=== PATIENT | female | born 1965 | race African-American/Black ===

== ENCOUNTER 2023-04-23 15:38 | Inpatient (IN) | payer OTHER ==
[~2023-04-23] VITALS: Ht 167.6 cm; Wt 97.5 kg
[2023-04-23 16:26] LABS: BASOPHILS % (AUTO) 0.4 % (0.0-2.0); EOSINOPHILS % (AUTO) 1.3 % (0.0-6.0); HEMATOCRIT 27 % (33-45); HEMOGLOBIN 7.9 g/dL (11.5-14.8); LYMPHOCYTES # (AUTO) 0.6 K/uL (0.8-4.8); MEAN CORPUSCULAR HEMOGLOBIN 31 PG (26.0-33.0); MEAN CORPUSCULAR HGB CONC 30 g/dl (31.0-36.0); MEAN CORPUSCULAR VOLUME 104 fL (82-100); MONOCYTES # (AUTO) 0.2 K/uL (0.1-1.30); MONOCYTES % (AUTO) 10.2 % (2.0-12.0); NEUTROPHILS # (AUTO) 1.1 K/uL (1.8-8.9); NEUTROPHILS % (AUTO) 56.1 % (43.0-81.0); RED BLOOD CELL COUNT(AUTO) 2.55 MIL/uL (4.0-5.2); RED CELL DISTRIBUTION WIDTH 24.5 % (11.5-15.0)
[2023-04-23 16:28] LABS: PLATELET COUNT (AUTO) 23 K/uL (150-450); WHITE BLOOD COUNT (AUTO) 1.9 K/uL (4.3-11.0)
[2023-04-23 16:37] LABS: CALCIUM, SERUM 9.3 mg/dL (8.5-10.1); CARBON DIOXIDE 26 mmol/L (21-32); CHLORIDE 110 mmol/L (98-107); CREATININE 1.9 mg/dL (0.6-1.3); GLUCOSE 70 mg/dL (74-106); POTASSIUM 3.9 mmol/L (3.5-5.1); SODIUM SERUM 142 mmol/L (136-145); UREA NITROGEN, BLOOD 17 mg/dL (7-18)
[2023-04-23 16:41] LABS: ALANINE AMINOTRANSFERASE 43 U/L (12-78); ALBUMIN 2.5 g/dL (3.4-5.0); ALKALINE PHOSPHATASE 288 U/L (46-116); ASPARTATE AMINOTRANSFERASE 41 U/L (15-37); BILIRUBIN,DIRECT 0.1 mg/dL (0.0-0.2); BILIRUBIN,TOTAL 0.5 mg/dL (0.2-1.0); TOTAL PROTEIN, SERUM 5.4 g/dL (6.4-8.2)
[2023-04-23 17:24] LABS: INR 1.05 (0.91-1.10); PARTIAL THROMBOPLASTIN TIME 41.9 SEC (24.3-34.3); PROTHROMBIN TIME 11.1 SECS (9.2-11.1)
[2023-04-23] MEDS ORDERED: CEFEPIME 1 GM in IV D5W 50 ML IV ONE (18:00)
[2023-04-23] MEDS ORDERED: IV NS 0.9% 1,000 ML BAG IV ONE (18:00)
[2023-04-23] MEDS ORDERED: VANCOMYCIN 1 GM in IV D5W 250 ML IV ONE (18:00)
[2023-04-23] MEDS ORDERED: METH-647 GT (18:02)
[2023-04-23] MEDS ORDERED: BLOO-668 IN (18:02)
[2023-04-23] MEDS ORDERED: CIPR500T5 PO (18:02)
[2023-04-23] MEDS ORDERED: GUAI100S9 PO (18:02)
[2023-04-23] MEDS ORDERED: PANT40TA2 PO (18:02)
[2023-04-23] MEDS ORDERED: DIPH25TA25 PO (18:02)
[2023-04-23] MEDS ORDERED: SENN-261 PO (18:02)
[2023-04-23] MEDS ORDERED: HYDR20TA23 GT ×2 (18:02)
[2023-04-23] MEDS ORDERED: MELA3TAB41 PO (18:02)
[2023-04-23] MEDS ORDERED: CLON0.2T GT (18:02)
[2023-04-23] MEDS ORDERED: FAMO-131 PO (18:02)
[2023-04-23] MEDS ORDERED: MAG30ORA GT (18:02)
[2023-04-23] MEDS ORDERED: BENZ1LOZ77 PO (18:02)
[2023-04-23] MEDS ORDERED: ONDA4TAB5 GT (18:02)
[2023-04-23] MEDS ORDERED: SEVE800T8 PO (18:02)
[2023-04-23] MEDS ORDERED: CALCIUM ALGINATE TD (18:02)
[2023-04-23] MEDS ORDERED: ALBU8.5H8 IH (18:02)
[2023-04-23] MEDS ORDERED: IPRA12.9 IH (18:02)
[2023-04-23] MEDS ORDERED: FOLI0.8T2 PO (18:02)
[2023-04-23] MEDS ORDERED: TRAZ-182 GT (18:02)
[2023-04-23] MEDS ORDERED: MIDO10TA PO (18:02)
[2023-04-23] MEDS ORDERED: ZINC56.713 TP (18:02)
[2023-04-23] MEDS ORDERED: BISA10SU11 RC (18:02)
[2023-04-23] MEDS ORDERED: HYDR-4303 PO (18:02)
[2023-04-23] MEDS ORDERED: ACET160L44 GT ×2 (18:02)
[2023-04-23] MEDS ORDERED: LORA-258 GT (18:02)
[2023-04-23] MEDS ORDERED: POLY17PO4 GT (18:02)
[2023-04-23] MEDS ORDERED: MIDO10TA GT (18:02)
[2023-04-23] MEDS ORDERED: FERR325T23 PO (18:02)
[2023-04-23] MEDS ORDERED: DULO60CA45 GT (18:02)
[2023-04-23] MEDS ORDERED: MAG HYDROX/AL HYDROX/SIMETH 30 ML UDC PO PRN (18:30)
[2023-04-23] MEDS ORDERED: METHOCARBAMOL (500MG) 500 MG TABLET PO PRN (18:30)
[2023-04-23] MEDS ORDERED: hydrALAZINE HCL IV 20 MG VIAL IV PRN (18:30)
[2023-04-23] MEDS ORDERED: MAGNESIUM HYDROXIDE 30 ML UDC PO PRN (18:30)
[2023-04-23] MEDS ORDERED: ACETAMINOPHEN 325 MG TABLET PO PRN (18:30)
[2023-04-23] MEDS ORDERED: ALBUTEROL FS 2.5 MG/0.5 ML VIAL.NEB NEB PRN (18:30)
[2023-04-23] MEDS ORDERED: ONDANSETRON HCL/PF 4 MG/2 ML VIAL IVP PRN (18:30)
[2023-04-23] MEDS ORDERED: Z GUARD REMEDY 4 OZ OINT TP PRN (18:30)
[2023-04-23] MEDS ORDERED: LORAZEPAM 0.5 MG TABLET PO PRN (18:30)
[2023-04-23] MEDS: ALBUTEROL FS 2.5 MG/0.5 ML VIAL.NEB NEB SCH (19:30)
[2023-04-23] MEDS: IPRATROPIUM NEB FS 0.5 MG/2.5 ML AMPUL.NEB NEB SCH (19:30)
[2023-04-23 19:39] LABS: ANISOCYTOSIS 1+; EOSINOPHILS % (MANUAL) 1 % (0-4); LYMPHOCYTES % (MANUAL) 28 % (16-48); MONOCYTES % (MANUAL) 10 % (0-11.0); NEUTROPHILS % (MANUAL) 61 (42-76); PLATELET ESTIMATE DECREASED
[2023-04-23] MEDS ORDERED: MIDODRINE HCL (5MG) 5 MG TABLET PO PRN (20:00)
[2023-04-23] MEDS ORDERED: VANCOMYCIN 1.5 GM in IV D5W 500ml IV ONE (21:00)
[2023-04-23] MEDS: TRAZODONE 50 MG TABLET PO SCH (22:00)
[2023-04-24] MEDS: ALBUTEROL FS 2.5 MG/0.5 ML VIAL.NEB NEB SCH ×4 (01:30→19:38)
[2023-04-24] MEDS: IPRATROPIUM NEB FS 0.5 MG/2.5 ML AMPUL.NEB NEB SCH ×4 (01:30→19:38)
[2023-04-24] MEDS ORDERED: CEFEPIME 1 GM in IV D5W 50 ML IV SCH ×2 (06:00→11:00)
[2023-04-24] MEDS: HYDROCORTISONE 20 MG TABLET PO SCH ×2 (06:00→18:00)
[2023-04-24 06:29] LABS: BASOPHILS % (AUTO) 0.6 % (0.0-2.0); EOSINOPHILS % (AUTO) 0.9 % (0.0-6.0); HEMATOCRIT 24 % (33-45); HEMOGLOBIN 7.4 g/dL (11.5-14.8); LYMPHOCYTES # (AUTO) 0.7 K/uL (0.8-4.8); LYMPHOCYTES % (AUTO) 31.2 % (20.0-44.0); MEAN CORPUSCULAR HEMOGLOBIN 30 PG (26.0-33.0); MEAN CORPUSCULAR HGB CONC 31 g/dl (31.0-36.0); MEAN CORPUSCULAR VOLUME 98 fL (82-100); MONOCYTES # (AUTO) 0.2 K/uL (0.1-1.30); MONOCYTES % (AUTO) 7.6 % (2.0-12.0); NEUTROPHILS # (AUTO) 1.3 K/uL (1.8-8.9); NEUTROPHILS % (AUTO) 59.7 % (43.0-81.0); RED BLOOD CELL COUNT(AUTO) 2.45 MIL/uL (4.0-5.2); RED CELL DISTRIBUTION WIDTH 23.9 % (11.5-15.0); WHITE BLOOD COUNT (AUTO) 2.1 K/uL (4.3-11.0)
[2023-04-24 06:52] LABS: ALBUMIN 2.4 g/dL (3.4-5.0); BILIRUBIN,TOTAL 0.7 mg/dL (0.2-1.0); CALCIUM, SERUM 9.5 mg/dL (8.5-10.1); CREATININE 1.9 mg/dL (0.6-1.3); PHOSPHORUS 1.2 mg/dL (2.5-4.9); POTASSIUM 4.1 mmol/L (3.5-5.1); TOTAL PROTEIN, SERUM 5.1 g/dL (6.4-8.2)
[2023-04-24] MEDS: FERROUS SULFATE (325 MG) 325 MG/TAB TABLET PO SCH (07:00)
[2023-04-24] MEDS ORDERED: IPRATROPIUM NEB FS 0.5 MG/2.5 ML AMPUL.NEB ONE (07:30)
[2023-04-24] MEDS ORDERED: ALBUTEROL FS 2.5 MG/0.5 ML VIAL.NEB ONE (07:30)
[2023-04-24] MEDS: PANTOPRAZOLE 40 MG TABLET.DR PO SCH (07:30)
[2023-04-24] MEDS: SEVELAMER CARBONATE 800 MG POWD.PACK PO SCH ×3 (08:00→18:00)
[2023-04-24] MEDS: DULOXETINE HCL 30 MG CAPSULE.DR PO SCH (09:00)
[2023-04-24] MEDS: POLYETHYLENE GLYCOL 3350 17 GM POWD.PACK PO SCH (09:00)
[2023-04-24] MEDS ORDERED: VANCOMYCIN 500 MG in IV D5W 100 ML IV PRN (09:00)
[2023-04-24] MEDS: DOCUSATE SODIUM LIQ 100 MG/10 ML UDC PO SCH ×2 (09:00→17:00)
[2023-04-24 09:20] LABS: PLATELET COUNT (AUTO) 22 K/uL (150-450)
[2023-04-24] MEDS ORDERED: KEY,NONCONTROL,TO KEEP IN PYXI 1 EA MC ONE (10:19)
[2023-04-24] MEDS ORDERED: VANCOMYCIN 1.5 GM in IV D5W 500ml IV ONE (15:00)
[2023-04-24 16:21] LABS: D-DIMER 0.36 mg/L(FEU (0.17-0.50); INR 1.06 (0.91-1.10); PROTHROMBIN TIME 11.2 SECS (9.2-11.1)
[2023-04-24 16:56] LABS: C-REACTIVE PROTEIN 13.6 mg/dL (0.0-0.30)
[2023-04-24 16:59] LABS: RHEUMATOID FACTOR SCREEN NEGATIVE (NEGATIVE)
[2023-04-24] MEDS ORDERED: Sodium Phosphate 15 MMOL in IV NS 0.9% 245 ML IV ONE (18:00)
[2023-04-24 19:59] VITALS: BP 115/77; TEMP 97.1; O2SAT 100
[2023-04-24 20:00] VITALS: BP 151/87; TEMP 98.4; O2SAT 100
[2023-04-24] MEDS: MORPHINE SULFATE INJ 2 MG/ML DISP.SYRIN IV PRN (20:42)
[2023-04-24] MEDS: CEFEPIME 1 GM in IV D5W 50 ML IV SCH (20:49)
[2023-04-24] MEDS: TRAZODONE 50 MG TABLET PO SCH (21:15)
[2023-04-25] VITALS: BP 148/81; TEMP 98.2; O2SAT 99
[2023-04-25] MEDS: IPRATROPIUM NEB FS 0.5 MG/2.5 ML AMPUL.NEB NEB SCH ×4 (01:36→19:36)
[2023-04-25] MEDS: ALBUTEROL FS 2.5 MG/0.5 ML VIAL.NEB NEB SCH ×4 (01:36→19:36)
[2023-04-25 02:34] LABS: BAND % (MANUAL) 3 % (0.0-5.0); BASOPHILS % (MANUAL) 0 % (0.0-2.0); EOSINOPHILS % (MANUAL) 0 % (0-4); LYMPHOCYTES % (MANUAL) 27 % (16-48); MONOCYTES % (MANUAL) 6 % (0-11.0); NEUTROPHILS % (MANUAL) 64 (42-76); PLATELET ESTIMATE DECREASED
[2023-04-25 02:35] LABS: ANISOCYTOSIS 1+; HYPOCHROMASIA 1+; OVALOCYTES 1+
[2023-04-25 04:00] VITALS: BP 137/75; TEMP 97.8; O2SAT 100
[2023-04-25] MEDS: CEFEPIME 1 GM in IV D5W 50 ML IV SCH ×2 (05:42→16:01)
[2023-04-25] MEDS: FERROUS SULFATE (325 MG) 325 MG/TAB TABLET PO SCH (05:43)
[2023-04-25] MEDS: HYDROCORTISONE 20 MG TABLET PO SCH ×2 (05:43→17:02)
[2023-04-25 05:51] LABS: BASOPHILS % (AUTO) 0.6 % (0.0-2.0); HEMATOCRIT 24 % (33-45); HEMOGLOBIN 7.4 g/dL (11.5-14.8); LYMPHOCYTES # (AUTO) 0.8 K/uL (0.8-4.8); LYMPHOCYTES % (AUTO) 30.4 % (20.0-44.0); MEAN CORPUSCULAR HEMOGLOBIN 31 PG (26.0-33.0); MEAN CORPUSCULAR HGB CONC 31 g/dl (31.0-36.0); MEAN CORPUSCULAR VOLUME 100 fL (82-100); MONOCYTES # (AUTO) 0.2 K/uL (0.1-1.30); MONOCYTES % (AUTO) 8.2 % (2.0-12.0); NEUTROPHILS # (AUTO) 1.6 K/uL (1.8-8.9); NEUTROPHILS % (AUTO) 59.8 % (43.0-81.0); RED BLOOD CELL COUNT(AUTO) 2.42 MIL/uL (4.0-5.2); RED CELL DISTRIBUTION WIDTH 24.5 % (11.5-15.0); WHITE BLOOD COUNT (AUTO) 2.7 K/uL (4.3-11.0)
[2023-04-25 06:08] LABS: PLATELET COUNT (AUTO) 20 K/uL (150-450)
[2023-04-25 06:11] LABS: CALCIUM, SERUM 9.7 mg/dL (8.5-10.1); CREATININE 2.5 mg/dL (0.6-1.3); POTASSIUM 4.6 mmol/L (3.5-5.1)
[2023-04-25 06:12] LABS: OCCULT BLOOD STOOL POSITIVE (NEGATIVE)
[2023-04-25 06:24] LABS: D-DIMER 0.37 mg/L(FEU (0.17-0.50); INR 1.11 (0.91-1.10); PARTIAL THROMBOPLASTIN TIME 44.1 SEC (24.3-34.3); PROTHROMBIN TIME 11.7 SECS (9.2-11.1)
[2023-04-25 08:00] VITALS: BP 150/100; TEMP 96; O2SAT 100
[2023-04-25 08:10] LABS: IMMUNOGLOBULIN A, SERUM 181 mg/dL (87-352); IMMUNOGLOBULIN G, SERUM 524 mg/dL (586-1602); IMMUNOGLOBULIN M, SERUM 92 mg/dL (26-217)
[2023-04-25] MEDS: DULOXETINE HCL 30 MG CAPSULE.DR PO SCH (08:55)
[2023-04-25] MEDS: DOCUSATE SODIUM LIQ 100 MG/10 ML UDC PO SCH ×2 (08:55→17:02)
[2023-04-25] MEDS: PANTOPRAZOLE 40 MG TABLET.DR PO SCH (08:55)
[2023-04-25] MEDS: SEVELAMER CARBONATE 800 MG POWD.PACK PO SCH (08:55)
[2023-04-25] MEDS: POLYETHYLENE GLYCOL 3350 17 GM POWD.PACK PO SCH (08:55)
[2023-04-25 09:07] LABS: FOLIC ACID 9.8 ng/mL (>3.0)
[2023-04-25 10:58] LABS: ANISOCYTOSIS 1+; BAND % (MANUAL) 8 % (0.0-5.0); BASOPHILS % (MANUAL) 0 % (0.0-2.0); EOSINOPHILS % (MANUAL) 0 % (0-4); HYPOCHROMASIA 1+; LYMPHOCYTES % (MANUAL) 24 % (16-48); MONOCYTES % (MANUAL) 7 % (0-11.0); NEUTROPHILS % (MANUAL) 61 (42-76); OVALOCYTES 1+; PLATELET ESTIMATE DECREASED
[2023-04-25 11:08] LABS: *ANA ANTI-CENTROMERE B AB <0.2 AI (0.0-0.9); *ANA ANTI-DNA(DS) AB, QN <1 IU/mL (0-9); *ANA ANTI-JO-1 <0.2 AI (0.0-0.9); *ANA ANTICHROMATIN ANTIBODY <0.2 AI (0.0-0.9); *ANA RNP ANTIBODIES <0.2 AI (0.0-0.9); *ANA SJOGREN'S ANTI-SS-A <0.2 AI (0.0-0.9); *ANA SJOGREN'S ANTI-SS-B <0.2 AI (0.0-0.9); *ANAANTI-SCLERODERMA-70 AB <0.2 AI (0.0-0.9); *ANASMITH AB <0.2 AI (0.0-0.9)
[2023-04-25 12:00] VITALS: BP 102/56; TEMP 96.8; O2SAT 100
[2023-04-25 12:12] LABS: *SPE A/G RATIO 1.5 (0.7-1.7); *SPE ALBUMIN 2.9 g/dL (2.9-4.4); *SPE ALPHA-1-GLOBULIN 0.3 g/dL (0.0-0.4); *SPE ALPHA-2-GLOBULIN 0.4 g/dL (0.4-1.0); *SPE BETA GLOBULIN 0.6 g/dL (0.7-1.3); *SPE GLOBULIN, TOTAL 1.9 g/dL (2.2-3.9); *SPE M-SPIKE Not Observed g/dL (Not Observed); *SPE PROTEIN TOTAL 4.8 g/dL (6.0-8.5); *SPEGAMMA GLOBULIN 0.5 g/dL (0.4-1.8); FREE KAPPA LT CHAINS SERUM 121.3 mg/L (3.3-19.4); FREE LAMBDA LT CHAIN SERUM 77.5 mg/L (5.7-26.3); HEPATITIS B SURFACE AB Reactive (.); KAPPA/LAMBDA RATIO SERUM 1.57 (0.26-1.65)
[2023-04-25] MEDS: SEVELAMER CARBONATE 800 MG TABLET PO SCH ×2 (12:49→17:02)
[2023-04-25 16:00] VITALS: BP 97/58; TEMP 97.2; O2SAT 100
[2023-04-25] MEDS: IV D5/ 0.9% NACL 1,000 ML IV PRN (19:37)
[2023-04-25 20:00] VITALS: BP 142/68; TEMP 97.6; O2SAT 100
[2023-04-25] MEDS: TRAZODONE 50 MG TABLET PO SCH (23:38)
[2023-04-26] VITALS (19 sets, daily range): BP systolic 80–148; BP diastolic 50–78; TEMP 95.9–98.2; O2SAT 100
[2023-04-26] MEDS: ALBUTEROL FS 2.5 MG/0.5 ML VIAL.NEB NEB SCH ×4 (01:32→20:08)
[2023-04-26] MEDS: IPRATROPIUM NEB FS 0.5 MG/2.5 ML AMPUL.NEB NEB SCH ×4 (01:32→20:08)
[2023-04-26] MEDS: MORPHINE SULFATE INJ 2 MG/ML DISP.SYRIN IV PRN ×2 (02:47→21:57)
[2023-04-26] MEDS: CEFEPIME 1 GM in IV D5W 50 ML IV SCH ×2 (06:08→17:32)
[2023-04-26] MEDS: HYDROCORTISONE 20 MG TABLET PO SCH ×2 (06:08→17:39)
[2023-04-26] MEDS: FERROUS SULFATE (325 MG) 325 MG/TAB TABLET PO SCH (06:09)
[2023-04-26] MEDS: IV D5/ 0.9% NACL 1,000 ML IV PRN ×2 (07:03→23:48)
[2023-04-26 07:14] LABS: CALCIUM, SERUM 9.1 mg/dL (8.5-10.1); CREATININE 1.9 mg/dL (0.6-1.3); POTASSIUM 4.1 mmol/L (3.5-5.1)
[2023-04-26] MEDS: SEVELAMER CARBONATE 800 MG TABLET PO SCH ×3 (08:16→17:39)
[2023-04-26] MEDS: DULOXETINE HCL 30 MG CAPSULE.DR PO SCH (08:16)
[2023-04-26] MEDS: DOCUSATE SODIUM LIQ 100 MG/10 ML UDC PO SCH ×2 (08:16→16:50)
[2023-04-26] MEDS: PANTOPRAZOLE 40 MG TABLET.DR PO SCH (08:16)
[2023-04-26] MEDS: POLYETHYLENE GLYCOL 3350 17 GM POWD.PACK PO SCH (08:17)
[2023-04-26 08:26] LABS: APPEARANCE,URINE TURBID (CLEAR); BLOOD, URINE 2+ Ery/uL (NEGATIVE); COLOR,URINE YELLOW (YELLOW); PH,URINE 7.5 (5.0-8.0); PROTEIN,URINE 3+ mg/dl (NEGATIVE); UGLUCOSE NEGATIVE (NEGATIVE)
[2023-04-26 08:27] LABS: ADD URINE CULTURE YES; BACTERIA,URINE Many /HPF (None Seen); BILIRUBIN,URINE NEGATIVE (NEGATIVE); KETONES,URINE NEGATIVE (NEGATIVE); LEUKOCYTE ESTERASE ,URINE 3+ (NEGATIVE); NITRITE, URINE NEGATIVE (NEGATIVE); SQUAMOUS EPITHELIAL CELL,UR Few /HPF (None Seen); UROBILINOGEN,URINE 0.2 EU/dL (0.2); WBC,URINE 51-80 /HPF (0-3)
[2023-04-26 09:04] LABS: BASOPHILS % (AUTO) 1.2 % (0.0-2.0); EOSINOPHILS % (AUTO) 0.4 % (0.0-6.0); HEMATOCRIT 23 % (33-45); HEMOGLOBIN 7.1 g/dL (11.5-14.8); LYMPHOCYTES # (AUTO) 0.6 K/uL (0.8-4.8); LYMPHOCYTES % (AUTO) 14.5 % (20.0-44.0); MEAN CORPUSCULAR HEMOGLOBIN 31 PG (26.0-33.0); MEAN CORPUSCULAR HGB CONC 32 g/dl (31.0-36.0); MEAN CORPUSCULAR VOLUME 98 fL (82-100); MONOCYTES # (AUTO) 0.2 K/uL (0.1-1.30); NEUTROPHILS # (AUTO) 3.2 K/uL (1.8-8.9); NEUTROPHILS % (AUTO) 79.9 % (43.0-81.0); RED BLOOD CELL COUNT(AUTO) 2.31 MIL/uL (4.0-5.2); RED CELL DISTRIBUTION WIDTH 24.5 % (11.5-15.0)
[2023-04-26 09:07] LABS: PLATELET COUNT (AUTO) 18 K/uL (150-450)
[2023-04-26 09:17] LABS: ALBUMIN 2.2 g/dL (3.4-5.0); BILIRUBIN,TOTAL 0.7 mg/dL (0.2-1.0); CREATININE 1.9 mg/dL (0.6-1.3); POTASSIUM 4.2 mmol/L (3.5-5.1); TOTAL PROTEIN, SERUM 5.1 g/dL (6.4-8.2)
[2023-04-26] MEDS ORDERED: MINERAL OIL/PETROLATUM,WHITE 120 GM JAR TP PRN (11:30)
[2023-04-26] MEDS ORDERED: NOREPINEPHRINE 8 MG in IV NS 0.9% 242 ML IV PRN (11:30)
[2023-04-26 11:47] LABS: ANISOCYTOSIS 1+; BAND % (MANUAL) 3 % (0.0-5.0); BASOPHILS % (MANUAL) 0 % (0.0-2.0); EOSINOPHILS % (MANUAL) 2 % (0-4); HYPOCHROMASIA 1+; LYMPHOCYTES % (MANUAL) 11 % (16-48); MONOCYTES % (MANUAL) 9 % (0-11.0); NEUTROPHILS % (MANUAL) 75 (42-76); OVALOCYTES 1+; PLATELET ESTIMATE DECREASED
[2023-04-26] MEDS ORDERED: EPOETIN ALFA (10,000 UNIT) 10,000 UNIT/ML VIAL SQ SCH (15:00)
[2023-04-26 15:07] LABS: HEMOGLOBIN 7.6 g/dL (11.5-14.8)
[2023-04-26] MEDS: NOREPINEPHRINE 8 MG in IV NS 0.9% 242 ML IV PRN (16:37)
[2023-04-26] MEDS: GENTAMICIN 0.1% OINT 15 GM TUBE TP SCH (17:42)
[2023-04-26] MEDS ORDERED: VANCOMYCIN 1 GM /D5W 250 ML PB IV ONE (21:03)
[2023-04-26] MEDS: TRAZODONE 50 MG TABLET PO SCH (21:05)
[2023-04-27] VITALS (84 sets, daily range): BP systolic 62–176; BP diastolic 26–164; TEMP 95.8–98.4; O2SAT 96–100
[2023-04-27] MEDS: IPRATROPIUM NEB FS 0.5 MG/2.5 ML AMPUL.NEB NEB SCH ×4 (02:11→19:34)
[2023-04-27] MEDS: ALBUTEROL FS 2.5 MG/0.5 ML VIAL.NEB NEB SCH ×4 (02:11→19:34)
[2023-04-27] MEDS: HYDROCORTISONE 20 MG TABLET PO SCH ×2 (06:00→17:34)
[2023-04-27] MEDS: SEVELAMER CARBONATE 800 MG TABLET PO SCH ×3 (08:00→17:35)
[2023-04-27] MEDS: GENTAMICIN 0.1% OINT 15 GM TUBE TP SCH (09:00)
[2023-04-27] MEDS: DULOXETINE HCL 30 MG CAPSULE.DR PO SCH (09:00)
[2023-04-27] MEDS: DOCUSATE SODIUM LIQ 100 MG/10 ML UDC PO SCH ×2 (09:00→17:00)
[2023-04-27] MEDS: POLYETHYLENE GLYCOL 3350 17 GM POWD.PACK PO SCH (09:00)
[2023-04-27 09:46] LABS: ALANINE AMINOTRANSFERASE < 6 U/L (12-78); ALBUMIN 2.4 g/dL (3.4-5.0); ALKALINE PHOSPHATASE 312 U/L (46-116); ASPARTATE AMINOTRANSFERASE 22 U/L (15-37); BILIRUBIN,TOTAL 1.3 mg/dL (0.2-1.0); CALCIUM, SERUM 9.5 mg/dL (8.5-10.1); CARBON DIOXIDE 24 mmol/L (21-32); CHLORIDE 105 mmol/L (98-107); CREATININE 2.1 mg/dL (0.6-1.3); GLUCOSE 62 mg/dL (74-106); POTASSIUM 4.3 mmol/L (3.5-5.1); SODIUM SERUM 135 mmol/L (136-145); TOTAL PROTEIN, SERUM 5.6 g/dL (6.4-8.2); UREA NITROGEN, BLOOD 19 mg/dL (7-18)
[2023-04-27] MEDS: PANTOPRAZOLE 40 MG VIAL IV SCH (10:04)
[2023-04-27] MEDS: GENTAMICIN 0.1% CREAM 15 GM TUBE TP SCH ×2 (11:00→17:51)
[2023-04-27 11:20] LABS: BASOPHILS % (AUTO) 0.3 % (0.0-2.0); EOSINOPHILS % (AUTO) 0.4 % (0.0-6.0); HEMATOCRIT 28 % (33-45); HEMOGLOBIN 8.8 g/dL (11.5-14.8); LYMPHOCYTES # (AUTO) 0.9 K/uL (0.8-4.8); LYMPHOCYTES % (AUTO) 8.8 % (20.0-44.0); MEAN CORPUSCULAR HEMOGLOBIN 31 PG (26.0-33.0); MEAN CORPUSCULAR HGB CONC 32 g/dl (31.0-36.0); MEAN CORPUSCULAR VOLUME 98 fL (82-100); MONOCYTES # (AUTO) 0.4 K/uL (0.1-1.30); MONOCYTES % (AUTO) 4.1 % (2.0-12.0); NEUTROPHILS # (AUTO) 8.7 K/uL (1.8-8.9); NEUTROPHILS % (AUTO) 86.4 % (43.0-81.0); RED BLOOD CELL COUNT(AUTO) 2.82 MIL/uL (4.0-5.2); RED CELL DISTRIBUTION WIDTH 24.4 % (11.5-15.0); WHITE BLOOD COUNT (AUTO) 10.1 K/uL (4.3-11.0)
[2023-04-27 11:25] LABS: PLATELET COUNT (AUTO) 33 K/uL (150-450)
[2023-04-27] MEDS ORDERED: LORAZEPAM INJ 2 MG/ML VIAL IV PRN (12:30)
[2023-04-27 16:32] LABS: ANISOCYTOSIS 1+; BAND % (MANUAL) 6 % (0.0-5.0); EOSINOPHILS % (MANUAL) 1 % (0-4); LYMPHOCYTES % (MANUAL) 12 % (16-48); MONOCYTES % (MANUAL) 5 % (0-11.0); NEUTROPHILS % (MANUAL) 76 (42-76); PLATELET ESTIMATE ADEQUATE
[2023-04-27 16:36] LABS: OVALOCYTES 1+
[2023-04-27] MEDS: NOREPINEPHRINE 8 MG in IV NS 0.9% 242 ML IV PRN (17:02)
[2023-04-27] MEDS: CEFEPIME 1 GM in IV D5W 50 ML IV SCH (17:50)
[2023-04-27] MEDS ORDERED: GENTAMICIN 120 MG in IV D5W 100 ML IV ONE (20:00)
[2023-04-27] MEDS: TRAZODONE 50 MG TABLET PO SCH (22:00)
[2023-04-28] VITALS (98 sets, daily range): BP systolic 83–138; BP diastolic 50–126; TEMP 97.6–98.4; O2SAT 98–100
[2023-04-28] MEDS: ALBUTEROL FS 2.5 MG/0.5 ML VIAL.NEB NEB SCH ×4 (01:16→19:14)
[2023-04-28] MEDS: IPRATROPIUM NEB FS 0.5 MG/2.5 ML AMPUL.NEB NEB SCH ×4 (01:16→19:14)
[2023-04-28] MEDS: HYDROCORTISONE 20 MG TABLET PO SCH (06:00)
[2023-04-28] MEDS: SEVELAMER CARBONATE 800 MG TABLET PO SCH ×3 (08:00→17:41)
[2023-04-28] MEDS: POLYETHYLENE GLYCOL 3350 17 GM POWD.PACK PO SCH (09:00)
[2023-04-28] MEDS: DULOXETINE HCL 30 MG CAPSULE.DR PO SCH (09:00)
[2023-04-28] MEDS: DOCUSATE SODIUM LIQ 100 MG/10 ML UDC PO SCH ×2 (09:00→17:00)
[2023-04-28] MEDS: PANTOPRAZOLE 40 MG VIAL IV SCH (09:19)
[2023-04-28] MEDS: GENTAMICIN 0.1% CREAM 15 GM TUBE TP SCH ×2 (09:22→17:41)
[2023-04-28] MEDS: IV NS 0.9% 250 ML IV PRN (13:41)
[2023-04-28] MEDS: NOREPINEPHRINE 8 MG in IV NS 0.9% 242 ML IV PRN (16:46)
[2023-04-28] MEDS: HYDROCORTISONE SOD SUCCINATE 100 MG/2 ML VIAL IV SCH (17:38)
[2023-04-28 20:37] LABS: BASOPHILS % (AUTO) 0.2 % (0.0-2.0); EOSINOPHILS % (AUTO) 0.1 % (0.0-6.0); HEMATOCRIT 27 % (33-45); HEMOGLOBIN 8.3 g/dL (11.5-14.8); LYMPHOCYTES # (AUTO) 0.7 K/uL (0.8-4.8); LYMPHOCYTES % (AUTO) 4.1 % (20.0-44.0); MEAN CORPUSCULAR HEMOGLOBIN 30 PG (26.0-33.0); MEAN CORPUSCULAR HGB CONC 31 g/dl (31.0-36.0); MEAN CORPUSCULAR VOLUME 98 fL (82-100); MONOCYTES # (AUTO) 0.3 K/uL (0.1-1.30); MONOCYTES % (AUTO) 1.8 % (2.0-12.0); NEUTROPHILS % (AUTO) 93.8 % (43.0-81.0); RED BLOOD CELL COUNT(AUTO) 2.76 MIL/uL (4.0-5.2); RED CELL DISTRIBUTION WIDTH 24.5 % (11.5-15.0)
[2023-04-28 20:40] LABS: PLATELET COUNT (AUTO) 21 K/uL (150-450)
[2023-04-28 21:13] LABS: BILIRUBIN,TOTAL 1.5 mg/dL (0.2-1.0); CALCIUM, SERUM 9.2 mg/dL (8.5-10.1); CREATININE 2.1 mg/dL (0.6-1.3); MAGNESIUM 1.7 mg/dL (1.8-2.4); PHOSPHORUS 2.5 mg/dL (2.5-4.9); TOTAL PROTEIN, SERUM 5.1 g/dL (6.4-8.2)
[2023-04-28 21:48] LABS: BAND % (MANUAL) 1 % (0.0-5.0); LYMPHOCYTES % (MANUAL) 6 % (16-48); MONOCYTES % (MANUAL) 2 % (0-11.0); NEUTROPHILS % (MANUAL) 91 (42-76)
[2023-04-28 21:52] LABS: ANISOCYTOSIS 1+; OVALOCYTES 1+; PLATELET ESTIMATE DECREASED
[2023-04-28] MEDS: TRAZODONE 50 MG TABLET PO SCH (22:00)
[2023-04-28] MEDS: IV D5/ 0.9% NACL 1,000 ML IV PRN (22:14)
[2023-04-29] VITALS (95 sets, daily range): BP systolic 68–188; BP diastolic 41–158; TEMP 97.3–98.3; O2SAT 81–100
[2023-04-29] MEDS: ALBUTEROL FS 2.5 MG/0.5 ML VIAL.NEB NEB SCH ×4 (02:13→19:57)
[2023-04-29] MEDS: IPRATROPIUM NEB FS 0.5 MG/2.5 ML AMPUL.NEB NEB SCH ×4 (02:13→19:57)
[2023-04-29] MEDS ORDERED: PHENTOLAMINE MESYLATE IV ONE (04:30)
[2023-04-29] MEDS: HYDROCORTISONE SOD SUCCINATE 100 MG/2 ML VIAL IV SCH ×2 (05:12→18:06)
[2023-04-29] MEDS: SEVELAMER CARBONATE 800 MG TABLET PO SCH ×3 (08:00→18:00)
[2023-04-29] MEDS: DOCUSATE SODIUM LIQ 100 MG/10 ML UDC PO SCH ×2 (08:37→17:00)
[2023-04-29] MEDS: DULOXETINE HCL 30 MG CAPSULE.DR PO SCH (08:37)
[2023-04-29] MEDS: POLYETHYLENE GLYCOL 3350 17 GM POWD.PACK PO SCH (08:37)
[2023-04-29] MEDS: GENTAMICIN 0.1% CREAM 15 GM TUBE TP SCH ×2 (08:38→17:46)
[2023-04-29] MEDS: PANTOPRAZOLE 40 MG VIAL IV SCH (08:41)
[2023-04-29] MEDS: MORPHINE SULFATE INJ 2 MG/ML DISP.SYRIN IV PRN ×2 (11:09→16:06)
[2023-04-29 15:11] LABS: BASOPHILS % (AUTO) 0.1 % (0.0-2.0); HEMATOCRIT 23 % (33-45); HEMOGLOBIN 7.2 g/dL (11.5-14.8); LYMPHOCYTES # (AUTO) 0.8 K/uL (0.8-4.8); LYMPHOCYTES % (AUTO) 6.7 % (20.0-44.0); MEAN CORPUSCULAR HEMOGLOBIN 30 PG (26.0-33.0); MEAN CORPUSCULAR HGB CONC 32 g/dl (31.0-36.0); MEAN CORPUSCULAR VOLUME 96 fL (82-100); MONOCYTES # (AUTO) 0.4 K/uL (0.1-1.30); MONOCYTES % (AUTO) 3.1 % (2.0-12.0); NEUTROPHILS # (AUTO) 10.6 K/uL (1.8-8.9); NEUTROPHILS % (AUTO) 90.1 % (43.0-81.0); RED BLOOD CELL COUNT(AUTO) 2.38 MIL/uL (4.0-5.2); RED CELL DISTRIBUTION WIDTH 24.5 % (11.5-15.0); WHITE BLOOD COUNT (AUTO) 11.8 K/uL (4.3-11.0)
[2023-04-29 15:12] LABS: PLATELET COUNT (AUTO) 25 K/uL (150-450)
[2023-04-29 15:15] LABS: CALCIUM, SERUM 9.3 mg/dL (8.5-10.1); CREATININE 2.4 mg/dL (0.6-1.3); POTASSIUM 4.2 mmol/L (3.5-5.1)
[2023-04-29 15:25] LABS: ALBUMIN 1.9 g/dL (3.4-5.0); BILIRUBIN,TOTAL 1.4 mg/dL (0.2-1.0)
[2023-04-29] MEDS ORDERED: TERBUTALINE SULFATE 1 MG/ML VIAL SQ ONE (15:30)
[2023-04-29 17:36] LABS: D-DIMER 1.29 mg/L(FEU (0.17-0.50); INR 1.41 (0.91-1.10); PARTIAL THROMBOPLASTIN TIME 49.1 SEC (24.3-34.3); PROTHROMBIN TIME 14.6 SECS (9.2-11.1)
[2023-04-29] MEDS: IV D5/ 0.9% NACL 1,000 ML IV PRN (17:41)
[2023-04-29 17:57] LABS: ANISOCYTOSIS 1+; LYMPHOCYTES % (MANUAL) 8 % (16-48); MONOCYTES % (MANUAL) 4 % (0-11.0); NEUTROPHILS % (MANUAL) 88 (42-76); PLATELET ESTIMATE DECREASED
[2023-04-29] MEDS: NOREPINEPHRINE 8 MG in IV NS 0.9% 242 ML IV PRN (21:10)
[2023-04-29] MEDS: TRAZODONE 50 MG TABLET PO SCH (22:00)
[2023-04-30] VITALS (55 sets, daily range): BP systolic 82–128; BP diastolic 55–93; TEMP 97–98.1; O2SAT 99–100
[2023-04-30] MEDS: ALBUTEROL FS 2.5 MG/0.5 ML VIAL.NEB NEB SCH ×4 (01:23→19:44)
[2023-04-30] MEDS: IPRATROPIUM NEB FS 0.5 MG/2.5 ML AMPUL.NEB NEB SCH ×4 (01:23→19:44)
[2023-04-30 04:46] LABS: BASOPHILS % (AUTO) 0.2 % (0.0-2.0); EOSINOPHILS % (AUTO) 0.1 % (0.0-6.0); HEMATOCRIT 21 % (33-45); LYMPHOCYTES # (AUTO) 0.8 K/uL (0.8-4.8); LYMPHOCYTES % (AUTO) 7.2 % (20.0-44.0); MEAN CORPUSCULAR HEMOGLOBIN 31 PG (26.0-33.0); MEAN CORPUSCULAR HGB CONC 32 g/dl (31.0-36.0); MEAN CORPUSCULAR VOLUME 95 fL (82-100); MONOCYTES # (AUTO) 0.6 K/uL (0.1-1.30); MONOCYTES % (AUTO) 5.6 % (2.0-12.0); NEUTROPHILS # (AUTO) 9.3 K/uL (1.8-8.9); NEUTROPHILS % (AUTO) 86.9 % (43.0-81.0); RED BLOOD CELL COUNT(AUTO) 2.22 MIL/uL (4.0-5.2); RED CELL DISTRIBUTION WIDTH 23.8 % (11.5-15.0); WHITE BLOOD COUNT (AUTO) 10.7 K/uL (4.3-11.0)
[2023-04-30 04:51] LABS: CALCIUM, SERUM 9.1 mg/dL (8.5-10.1); CREATININE 2.5 mg/dL (0.6-1.3); POTASSIUM 3.8 mmol/L (3.5-5.1)
[2023-04-30 04:53] LABS: PLATELET COUNT (AUTO) 23 K/uL (150-450)
[2023-04-30 04:54] LABS: HEMOGLOBIN 6.8 g/dL (11.5-14.8)
[2023-04-30 04:57] LABS: ALBUMIN 1.8 g/dL (3.4-5.0); BILIRUBIN,TOTAL 0.9 mg/dL (0.2-1.0); TOTAL PROTEIN, SERUM 4.7 g/dL (6.4-8.2)
[2023-04-30 05:01] LABS: D-DIMER 1.41 mg/L(FEU (0.17-0.50); INR 1.29 (0.91-1.10); PROTHROMBIN TIME 13.4 SECS (9.2-11.1)
[2023-04-30] MEDS: HYDROCORTISONE SOD SUCCINATE 100 MG/2 ML VIAL IV SCH ×2 (06:27→17:36)
[2023-04-30] MEDS: SEVELAMER CARBONATE 800 MG TABLET PO SCH ×3 (07:58→17:35)
[2023-04-30] MEDS: DOCUSATE SODIUM LIQ 100 MG/10 ML UDC PO SCH ×2 (08:03→16:30)
[2023-04-30] MEDS: DULOXETINE HCL 30 MG CAPSULE.DR PO SCH (08:03)
[2023-04-30] MEDS: POLYETHYLENE GLYCOL 3350 17 GM POWD.PACK PO SCH (08:03)
[2023-04-30] MEDS: PANTOPRAZOLE 40 MG VIAL IV SCH (08:03)
[2023-04-30] MEDS: GENTAMICIN 0.1% CREAM 15 GM TUBE TP SCH ×2 (08:04→16:30)
[2023-04-30] MEDS: IV NS 0.9% 250 ML IV PRN (08:26)
[2023-04-30] MEDS: IV D5/ 0.9% NACL 1,000 ML IV PRN (10:21)
[2023-04-30 12:06] LABS: ANISOCYTOSIS 1+; BASOPHILS % (MANUAL) 0 % (0.0-2.0); EOSINOPHILS % (MANUAL) 0 % (0-4); LYMPHOCYTES % (MANUAL) 9 % (16-48); MONOCYTES % (MANUAL) 6 % (0-11.0); NEUTROPHILS % (MANUAL) 85 (42-76); OVALOCYTES 1+; PLATELET ESTIMATE DECREASED; STOMATOCYTES 1+
[2023-04-30] MEDS: EPOETIN ALFA (10,000 UNIT) 10,000 UNIT/ML VIAL SQ SCH (15:04)
[2023-04-30] MEDS: GENTAMICIN 120 MG in IV D5W 100 ML IV PRN (17:36)
[2023-04-30 19:19] LABS: HEMATOCRIT 24 % (33-45); HEMOGLOBIN 7.5 g/dL (11.5-14.8); MEAN CORPUSCULAR HEMOGLOBIN 30 PG (26.0-33.0); MEAN CORPUSCULAR HGB CONC 32 g/dl (31.0-36.0); MEAN CORPUSCULAR VOLUME 92 fL (82-100); RED BLOOD CELL COUNT(AUTO) 2.56 MIL/uL (4.0-5.2); RED CELL DISTRIBUTION WIDTH 24.8 % (11.5-15.0); WHITE BLOOD COUNT (AUTO) 9.7 K/uL (4.3-11.0)
[2023-04-30 19:45] LABS: PLATELET COUNT (AUTO) 19 K/uL (150-450)
[2023-04-30] MEDS: TRAZODONE 50 MG TABLET PO SCH (22:00)
[2023-05-01] VITALS (24 sets, daily range): BP systolic 104–139; BP diastolic 53–79; TEMP 96.9–97.9; O2SAT 98–100
[2023-05-01] MEDS: IPRATROPIUM NEB FS 0.5 MG/2.5 ML AMPUL.NEB NEB SCH ×4 (01:06→19:37)
[2023-05-01] MEDS: ALBUTEROL FS 2.5 MG/0.5 ML VIAL.NEB NEB SCH ×4 (01:06→19:37)
[2023-05-01] MEDS: IV D5/ 0.9% NACL 1,000 ML IV PRN ×2 (02:47→19:33)
[2023-05-01] MEDS: HYDROCORTISONE SOD SUCCINATE 100 MG/2 ML VIAL IV SCH ×2 (05:43→17:02)
[2023-05-01 06:23] LABS: BASOPHILS % (AUTO) 0.1 % (0.0-2.0); HEMATOCRIT 23 % (33-45); HEMOGLOBIN 7.4 g/dL (11.5-14.8); LYMPHOCYTES # (AUTO) 0.9 K/uL (0.8-4.8); LYMPHOCYTES % (AUTO) 12.7 % (20.0-44.0); MEAN CORPUSCULAR HEMOGLOBIN 29 PG (26.0-33.0); MEAN CORPUSCULAR HGB CONC 32 g/dl (31.0-36.0); MEAN CORPUSCULAR VOLUME 92 fL (82-100); MONOCYTES # (AUTO) 0.4 K/uL (0.1-1.30); MONOCYTES % (AUTO) 5.3 % (2.0-12.0); NEUTROPHILS # (AUTO) 5.9 K/uL (1.8-8.9); NEUTROPHILS % (AUTO) 81.9 % (43.0-81.0); RED BLOOD CELL COUNT(AUTO) 2.51 MIL/uL (4.0-5.2); RED CELL DISTRIBUTION WIDTH 24.4 % (11.5-15.0); WHITE BLOOD COUNT (AUTO) 7.1 K/uL (4.3-11.0)
[2023-05-01 06:32] LABS: D-DIMER 1.34 mg/L(FEU (0.17-0.50); INR 1.08 (0.91-1.10); PARTIAL THROMBOPLASTIN TIME 49.6 SEC (24.3-34.3); PROTHROMBIN TIME 11.4 SECS (9.2-11.1)
[2023-05-01 06:36] LABS: PLATELET COUNT (AUTO) 17 K/uL (150-450)
[2023-05-01 06:43] LABS: CALCIUM, SERUM 8.9 mg/dL (8.5-10.1); POTASSIUM 3.6 mmol/L (3.5-5.1)
[2023-05-01 06:48] LABS: ALBUMIN 1.8 g/dL (3.4-5.0); BILIRUBIN,TOTAL 0.9 mg/dL (0.2-1.0); TOTAL PROTEIN, SERUM 4.8 g/dL (6.4-8.2)
[2023-05-01] MEDS: SEVELAMER CARBONATE 800 MG TABLET PO SCH ×3 (08:00→17:02)
[2023-05-01] MEDS: DOCUSATE SODIUM LIQ 100 MG/10 ML UDC PO SCH ×2 (09:00→16:57)
[2023-05-01] MEDS: DULOXETINE HCL 30 MG CAPSULE.DR PO SCH (09:00)
[2023-05-01] MEDS: POLYETHYLENE GLYCOL 3350 17 GM POWD.PACK PO SCH (09:00)
[2023-05-01] MEDS: PANTOPRAZOLE 40 MG VIAL IV SCH (09:51)
[2023-05-01] MEDS: GENTAMICIN 0.1% CREAM 15 GM TUBE TP SCH ×2 (09:52→16:58)
[2023-05-01 11:26] LABS: BASOPHILS % (MANUAL) 0 % (0.0-2.0); EOSINOPHILS % (MANUAL) 0 % (0-4); LYMPHOCYTES % (MANUAL) 11 % (16-48); MONOCYTES % (MANUAL) 6 % (0-11.0); NEUTROPHILS % (MANUAL) 83 (42-76)
[2023-05-01 11:27] LABS: ANISOCYTOSIS 1+; HYPOCHROMASIA 1+; PLATELET ESTIMATE DECREASED
[2023-05-01] MEDS: TRAZODONE 50 MG TABLET PO SCH (22:00)
[2023-05-02] VITALS (24 sets, daily range): BP systolic 94–140; BP diastolic 56–81; TEMP 96.7–98.2; O2SAT 99–100
[2023-05-02] MEDS: IPRATROPIUM NEB FS 0.5 MG/2.5 ML AMPUL.NEB NEB SCH ×4 (01:14→19:23)
[2023-05-02] MEDS: ALBUTEROL FS 2.5 MG/0.5 ML VIAL.NEB NEB SCH ×4 (01:14→19:23)
[2023-05-02] MEDS: HYDROCORTISONE SOD SUCCINATE 100 MG/2 ML VIAL IV SCH ×2 (06:28→17:41)
[2023-05-02 07:13] LABS: HEMATOCRIT 23 % (33-45); HEMOGLOBIN 7.3 g/dL (11.5-14.8); LYMPHOCYTES # (AUTO) 1.1 K/uL (0.8-4.8); LYMPHOCYTES % (AUTO) 18.1 % (20.0-44.0); MEAN CORPUSCULAR HEMOGLOBIN 29 PG (26.0-33.0); MEAN CORPUSCULAR HGB CONC 32 g/dl (31.0-36.0); MEAN CORPUSCULAR VOLUME 92 fL (82-100); MONOCYTES # (AUTO) 0.8 K/uL (0.1-1.30); MONOCYTES % (AUTO) 13.3 % (2.0-12.0); NEUTROPHILS # (AUTO) 4.1 K/uL (1.8-8.9); NEUTROPHILS % (AUTO) 68.6 % (43.0-81.0); RED BLOOD CELL COUNT(AUTO) 2.49 MIL/uL (4.0-5.2); RED CELL DISTRIBUTION WIDTH 24.2 % (11.5-15.0)
[2023-05-02 07:20] LABS: CALCIUM, SERUM 8.8 mg/dL (8.5-10.1); CREATININE 2.3 mg/dL (0.6-1.3); POTASSIUM 3.7 mmol/L (3.5-5.1)
[2023-05-02 07:22] LABS: PLATELET COUNT (AUTO) 18 K/uL (150-450)
[2023-05-02 07:26] LABS: ALBUMIN 1.9 g/dL (3.4-5.0); BILIRUBIN,TOTAL 0.7 mg/dL (0.2-1.0); TOTAL PROTEIN, SERUM 4.9 g/dL (6.4-8.2)
[2023-05-02] MEDS: SEVELAMER CARBONATE 800 MG TABLET PO SCH ×3 (08:00→17:40)
[2023-05-02] MEDS: DULOXETINE HCL 30 MG CAPSULE.DR PO SCH (08:54)
[2023-05-02] MEDS: POLYETHYLENE GLYCOL 3350 17 GM POWD.PACK PO SCH (08:54)
[2023-05-02] MEDS: DOCUSATE SODIUM LIQ 100 MG/10 ML UDC PO SCH ×2 (08:54→17:00)
[2023-05-02] MEDS: GENTAMICIN 0.1% CREAM 15 GM TUBE TP SCH ×2 (09:10→17:39)
[2023-05-02] MEDS: PANTOPRAZOLE 40 MG VIAL IV SCH (10:32)
[2023-05-02] MEDS: GENTAMICIN 120 MG in IV D5W 100 ML IV PRN (10:44)
[2023-05-02] MEDS: IV D5/ 0.9% NACL 1,000 ML IV PRN (12:02)
[2023-05-02 13:20] LABS: ANISOCYTOSIS 1+; BASOPHILS % (MANUAL) 0 % (0.0-2.0); EOSINOPHILS % (MANUAL) 0 % (0-4); HYPOCHROMASIA 1+; LYMPHOCYTES % (MANUAL) 15 % (16-48); MONOCYTES % (MANUAL) 14 % (0-11.0); NEUTROPHILS % (MANUAL) 71 (42-76); OVALOCYTES 1+; PLATELET ESTIMATE DECREASED
[2023-05-02] MEDS: EPOETIN ALFA (10,000 UNIT) 10,000 UNIT/ML VIAL SQ SCH (15:47)
[2023-05-02] MEDS: TRAZODONE 50 MG TABLET PO SCH (22:00)
[2023-05-03] VITALS (89 sets, daily range): BP systolic 67–150; BP diastolic 47–98; TEMP 97.5–99.6; O2SAT 98–100
[2023-05-03] MEDS: IPRATROPIUM NEB FS 0.5 MG/2.5 ML AMPUL.NEB NEB SCH ×4 (00:55→19:44)
[2023-05-03] MEDS: ALBUTEROL FS 2.5 MG/0.5 ML VIAL.NEB NEB SCH ×4 (00:55→19:44)
[2023-05-03] MEDS: NOREPINEPHRINE 8 MG in IV NS 0.9% 242 ML IV PRN (03:25)
[2023-05-03] MEDS: IV D5/ 0.9% NACL 1,000 ML IV PRN ×2 (03:55→19:50)
[2023-05-03 04:55] LABS: BASOPHILS % (AUTO) 0.2 % (0.0-2.0); EOSINOPHILS % (AUTO) 0.1 % (0.0-6.0); HEMATOCRIT 28 % (33-45); HEMOGLOBIN 8.7 g/dL (11.5-14.8); LYMPHOCYTES # (AUTO) 1.6 K/uL (0.8-4.8); LYMPHOCYTES % (AUTO) 13.2 % (20.0-44.0); MEAN CORPUSCULAR HEMOGLOBIN 29 PG (26.0-33.0); MEAN CORPUSCULAR HGB CONC 31 g/dl (31.0-36.0); MEAN CORPUSCULAR VOLUME 96 fL (82-100); MONOCYTES # (AUTO) 0.9 K/uL (0.1-1.30); NEUTROPHILS # (AUTO) 9.3 K/uL (1.8-8.9); NEUTROPHILS % (AUTO) 78.5 % (43.0-81.0); PLATELET COUNT (AUTO) 58 K/uL (150-450); RED BLOOD CELL COUNT(AUTO) 2.96 MIL/uL (4.0-5.2); RED CELL DISTRIBUTION WIDTH 24.8 % (11.5-15.0); WHITE BLOOD COUNT (AUTO) 11.9 K/uL (4.3-11.0)
[2023-05-03 05:07] LABS: D-DIMER 2.04 mg/L(FEU (0.17-0.50); INR 1.03 (0.91-1.10); PARTIAL THROMBOPLASTIN TIME 37.9 SEC (24.3-34.3); PROTHROMBIN TIME 10.9 SECS (9.2-11.1)
[2023-05-03 05:09] LABS: CALCIUM, SERUM 8.8 mg/dL (8.5-10.1)
[2023-05-03 05:11] LABS: ALBUMIN 2.1 g/dL (3.4-5.0); BILIRUBIN,TOTAL 1.1 mg/dL (0.2-1.0); TOTAL PROTEIN, SERUM 5.7 g/dL (6.4-8.2)
[2023-05-03] MEDS: HYDROCORTISONE SOD SUCCINATE 100 MG/2 ML VIAL IV SCH ×2 (05:44→17:33)
[2023-05-03] MEDS: SEVELAMER CARBONATE 800 MG TABLET PO SCH ×3 (08:00→18:00)
[2023-05-03] MEDS: DULOXETINE HCL 30 MG CAPSULE.DR PO SCH (08:08)
[2023-05-03] MEDS: DOCUSATE SODIUM LIQ 100 MG/10 ML UDC PO SCH ×2 (08:08→16:11)
[2023-05-03] MEDS: POLYETHYLENE GLYCOL 3350 17 GM POWD.PACK PO SCH (08:09)
[2023-05-03] MEDS: PANTOPRAZOLE 40 MG VIAL IV SCH (09:14)
[2023-05-03] MEDS: GENTAMICIN 0.1% CREAM 15 GM TUBE TP SCH ×2 (09:15→16:49)
[2023-05-03 13:25] LABS: ANISOCYTOSIS 1+; BASOPHILS % (MANUAL) 0 % (0.0-2.0); EOSINOPHILS % (MANUAL) 0 % (0-4); HYPOCHROMASIA 1+; LYMPHOCYTES % (MANUAL) 10 % (16-48); MONOCYTES % (MANUAL) 9 % (0-11.0); NEUTROPHILS % (MANUAL) 81 (42-76); OVALOCYTES 1+; PLATELET ESTIMATE DECREASED
[2023-05-03] MEDS: TRAZODONE 50 MG TABLET PO SCH (21:07)
[2023-05-04] VITALS (48 sets, daily range): BP systolic 84–137; BP diastolic 64–122; TEMP 96.1–97.4; O2SAT 93–100
[2023-05-04] MEDS: IPRATROPIUM NEB FS 0.5 MG/2.5 ML AMPUL.NEB NEB SCH ×4 (01:55→20:16)
[2023-05-04] MEDS: ALBUTEROL FS 2.5 MG/0.5 ML VIAL.NEB NEB SCH ×4 (01:55→20:16)
[2023-05-04 05:05] LABS: BASOPHILS % (AUTO) 0.1 % (0.0-2.0); EOSINOPHILS % (AUTO) 0.1 % (0.0-6.0); HEMATOCRIT 22 % (33-45); LYMPHOCYTES # (AUTO) 0.7 K/uL (0.8-4.8); MEAN CORPUSCULAR HEMOGLOBIN 30 PG (26.0-33.0); MEAN CORPUSCULAR HGB CONC 32 g/dl (31.0-36.0); MEAN CORPUSCULAR VOLUME 92 fL (82-100); MONOCYTES # (AUTO) 0.4 K/uL (0.1-1.30); MONOCYTES % (AUTO) 4.1 % (2.0-12.0); NEUTROPHILS % (AUTO) 87.7 % (43.0-81.0); PLATELET COUNT (AUTO) 75 K/uL (150-450); RED BLOOD CELL COUNT(AUTO) 2.35 MIL/uL (4.0-5.2); WHITE BLOOD COUNT (AUTO) 9.1 K/uL (4.3-11.0)
[2023-05-04 05:21] LABS: ALBUMIN 1.6 g/dL (3.4-5.0); BILIRUBIN,TOTAL 0.9 mg/dL (0.2-1.0); CREATININE 2.4 mg/dL (0.6-1.3); POTASSIUM 3.6 mmol/L (3.5-5.1); TOTAL PROTEIN, SERUM 4.5 g/dL (6.4-8.2)
[2023-05-04] MEDS: HYDROCORTISONE SOD SUCCINATE 100 MG/2 ML VIAL IV SCH ×2 (05:36→17:53)
[2023-05-04] MEDS: SEVELAMER CARBONATE 800 MG TABLET PO SCH ×3 (07:43→17:39)
[2023-05-04] MEDS: DULOXETINE HCL 30 MG CAPSULE.DR PO SCH (08:47)
[2023-05-04] MEDS: DOCUSATE SODIUM LIQ 100 MG/10 ML UDC PO SCH ×2 (08:47→17:00)
[2023-05-04] MEDS: POLYETHYLENE GLYCOL 3350 17 GM POWD.PACK PO SCH (08:48)
[2023-05-04] MEDS: GENTAMICIN 0.1% CREAM 15 GM TUBE TP SCH ×2 (09:39→17:53)
[2023-05-04] MEDS: PANTOPRAZOLE 40 MG VIAL IV SCH (09:39)
[2023-05-04] MEDS: IV D5/ 0.9% NACL 1,000 ML IV PRN (12:17)
[2023-05-04 12:30] LABS: ANISOCYTOSIS 1+; BASOPHILS % (MANUAL) 0 % (0.0-2.0); EOSINOPHILS % (MANUAL) 1 % (0-4); HYPOCHROMASIA 1+; LYMPHOCYTES % (MANUAL) 9 % (16-48); MONOCYTES % (MANUAL) 5 % (0-11.0); NEUTROPHILS % (MANUAL) 85 (42-76); PLATELET ESTIMATE DECREASED; STOMATOCYTES 1+
[2023-05-04 14:03] LABS: HEMOGLOBIN 6.9 g/dL (11.5-14.8)
[2023-05-04] MEDS: GENTAMICIN 120 MG in IV D5W 100 ML IV PRN (18:27)
[2023-05-04] MEDS ORDERED: TPN/PPN PER PHARMACY XX PRN (18:30)
[2023-05-04 20:19] LABS: BASOPHILS # (AUTO) 0.1 K/uL (0.0-0.2); BASOPHILS % (AUTO) 1.1 % (0.0-2.0); EOSINOPHILS % (AUTO) 0.4 % (0.0-6.0); HEMATOCRIT 26 % (33-45); HEMOGLOBIN 8.6 g/dL (11.5-14.8); LYMPHOCYTES # (AUTO) 0.4 K/uL (0.8-4.8); LYMPHOCYTES % (AUTO) 3.7 % (20.0-44.0); MEAN CORPUSCULAR HEMOGLOBIN 30 PG (26.0-33.0); MEAN CORPUSCULAR HGB CONC 32 g/dl (31.0-36.0); MEAN CORPUSCULAR VOLUME 92 fL (82-100); MONOCYTES # (AUTO) 0.3 K/uL (0.1-1.30); MONOCYTES % (AUTO) 2.8 % (2.0-12.0); NEUTROPHILS # (AUTO) 9.1 K/uL (1.8-8.9); PLATELET COUNT (AUTO) 94 K/uL (150-450); RED BLOOD CELL COUNT(AUTO) 2.88 MIL/uL (4.0-5.2); RED CELL DISTRIBUTION WIDTH 22.1 % (11.5-15.0); WHITE BLOOD COUNT (AUTO) 9.9 K/uL (4.3-11.0)
[2023-05-04] MEDS: TRAZODONE 50 MG TABLET PO SCH (21:35)
[2023-05-04 22:14] LABS: BAND % (MANUAL) 2 % (0.0-5.0); LYMPHOCYTES % (MANUAL) 12 % (16-48); MONOCYTES % (MANUAL) 3 % (0-11.0); NEUTROPHILS % (MANUAL) 83 (42-76); PLATELET ESTIMATE DECREASED
[2023-05-04 22:15] LABS: ANISOCYTOSIS 1+; OVALOCYTES 1+; ROULEAUX 1+
[2023-05-05] VITALS (24 sets, daily range): BP systolic 96–152; BP diastolic 62–92; TEMP 95.9–98.1; O2SAT 95–100
[2023-05-05] MEDS: ALBUTEROL FS 2.5 MG/0.5 ML VIAL.NEB NEB SCH ×5 (01:40→23:43)
[2023-05-05] MEDS: IPRATROPIUM NEB FS 0.5 MG/2.5 ML AMPUL.NEB NEB SCH ×5 (01:40→23:43)
[2023-05-05] MEDS: IV D5/ 0.9% NACL 1,000 ML IV PRN ×2 (04:06→20:47)
[2023-05-05 04:39] LABS: BASOPHILS % (AUTO) 0.1 % (0.0-2.0); EOSINOPHILS % (AUTO) 0.1 % (0.0-6.0); HEMATOCRIT 26 % (33-45); HEMOGLOBIN 8.5 g/dL (11.5-14.8); LYMPHOCYTES # (AUTO) 0.5 K/uL (0.8-4.8); LYMPHOCYTES % (AUTO) 4.3 % (20.0-44.0); MEAN CORPUSCULAR HEMOGLOBIN 29 PG (26.0-33.0); MEAN CORPUSCULAR HGB CONC 32 g/dl (31.0-36.0); MEAN CORPUSCULAR VOLUME 91 fL (82-100); MONOCYTES # (AUTO) 0.3 K/uL (0.1-1.30); NEUTROPHILS # (AUTO) 10.5 K/uL (1.8-8.9); NEUTROPHILS % (AUTO) 92.5 % (43.0-81.0); PLATELET COUNT (AUTO) 94 K/uL (150-450); WHITE BLOOD COUNT (AUTO) 11.4 K/uL (4.3-11.0)
[2023-05-05 04:40] LABS: CALCIUM, SERUM 8.1 mg/dL (8.5-10.1); MAGNESIUM 1.6 mg/dL (1.8-2.4); PHOSPHORUS 2.8 mg/dL (2.5-4.9); POTASSIUM 3.5 mmol/L (3.5-5.1)
[2023-05-05 05:08] LABS: GENTAMICIN,TROUGH 5.8 ug/ml (0.2-2.0)
[2023-05-05] MEDS: HYDROCORTISONE SOD SUCCINATE 100 MG/2 ML VIAL IV SCH ×2 (05:16→17:55)
[2023-05-05 06:55] LABS: ANISOCYTOSIS 1+; LYMPHOCYTES % (MANUAL) 3 % (16-48); MONOCYTES % (MANUAL) 2 % (0-11.0); NEUTROPHILS % (MANUAL) 95 (42-76); PLATELET ESTIMATE DECREASED
[2023-05-05] MEDS: SEVELAMER CARBONATE 800 MG TABLET PO SCH ×3 (08:00→17:53)
[2023-05-05] MEDS: POLYETHYLENE GLYCOL 3350 17 GM POWD.PACK PO SCH (08:10)
[2023-05-05] MEDS: DULOXETINE HCL 30 MG CAPSULE.DR PO SCH (08:10)
[2023-05-05] MEDS: DOCUSATE SODIUM LIQ 100 MG/10 ML UDC PO SCH ×2 (08:10→16:02)
[2023-05-05] MEDS: Magnesium 1GM/D5W 100ML PREMIX 100 ML IV SCH ×2 (08:41→09:43)
[2023-05-05] MEDS: MORPHINE SULFATE INJ 2 MG/ML DISP.SYRIN IV PRN (08:42)
[2023-05-05] MEDS: PANTOPRAZOLE 40 MG VIAL IV SCH (08:42)
[2023-05-05] MEDS: GENTAMICIN 0.1% CREAM 15 GM TUBE TP SCH ×2 (08:42→21:05)
[2023-05-05 08:45] LABS: HEMOGLOBIN 8.6 g/dL (11.5-14.8)
[2023-05-05 08:55] LABS: ALBUMIN 1.8 g/dL (3.4-5.0)
[2023-05-05 08:58] LABS: PREALBUMIN 14.1 MG/DL (18.0-35.7)
[2023-05-05] MEDS: EPOETIN ALFA (10,000 UNIT) 10,000 UNIT/ML VIAL SQ SCH (15:15)
[2023-05-05] MEDS: TRAZODONE 50 MG TABLET PO SCH (21:29)
[2023-05-06] VITALS (24 sets, daily range): BP systolic 99–134; BP diastolic 61–98; TEMP 95.6–98.3; O2SAT 96–100
[2023-05-06] MEDS: IPRATROPIUM NEB FS 0.5 MG/2.5 ML AMPUL.NEB NEB SCH ×4 (01:57→19:32)
[2023-05-06] MEDS: ALBUTEROL FS 2.5 MG/0.5 ML VIAL.NEB NEB SCH ×4 (01:57→19:32)
[2023-05-06 04:37] LABS: CALCIUM, SERUM 8.3 mg/dL (8.5-10.1); CREATININE 2.2 mg/dL (0.6-1.3); MAGNESIUM 2.1 mg/dL (1.8-2.4); PHOSPHORUS 3.2 mg/dL (2.5-4.9); POTASSIUM 3.5 mmol/L (3.5-5.1)
[2023-05-06 05:25] LABS: GENTAMICIN,TROUGH 5.5 ug/ml (0.2-2.0)
[2023-05-06] MEDS: HYDROCORTISONE SOD SUCCINATE 100 MG/2 ML VIAL IV SCH ×2 (05:50→17:12)
[2023-05-06] MEDS: SEVELAMER CARBONATE 800 MG TABLET PO SCH ×3 (08:00→17:00)
[2023-05-06] MEDS: DOCUSATE SODIUM LIQ 100 MG/10 ML UDC PO SCH ×2 (08:01→16:59)
[2023-05-06] MEDS: POLYETHYLENE GLYCOL 3350 17 GM POWD.PACK PO SCH (08:01)
[2023-05-06] MEDS: DULOXETINE HCL 30 MG CAPSULE.DR PO SCH (08:01)
[2023-05-06] MEDS: PANTOPRAZOLE 40 MG VIAL IV SCH (08:43)
[2023-05-06] MEDS: GENTAMICIN 0.1% CREAM 15 GM TUBE TP SCH ×2 (08:44→16:59)
[2023-05-06] MEDS: CLOTRIMAZOLE 1% 15 GM TUBE TP SCH ×3 (08:45→20:51)
[2023-05-06 08:59] LABS: BASOPHILS % (AUTO) 0.1 % (0.0-2.0); EOSINOPHILS % (AUTO) 0.2 % (0.0-6.0); HEMATOCRIT 27 % (33-45); HEMOGLOBIN 8.5 g/dL (11.5-14.8); LYMPHOCYTES # (AUTO) 0.5 K/uL (0.8-4.8); LYMPHOCYTES % (AUTO) 5.7 % (20.0-44.0); MEAN CORPUSCULAR HEMOGLOBIN 30 PG (26.0-33.0); MEAN CORPUSCULAR HGB CONC 32 g/dl (31.0-36.0); MEAN CORPUSCULAR VOLUME 93 fL (82-100); MONOCYTES # (AUTO) 0.3 K/uL (0.1-1.30); MONOCYTES % (AUTO) 3.6 % (2.0-12.0); NEUTROPHILS # (AUTO) 8.3 K/uL (1.8-8.9); NEUTROPHILS % (AUTO) 90.4 % (43.0-81.0); PLATELET COUNT (AUTO) 100 K/uL (150-450); RED BLOOD CELL COUNT(AUTO) 2.85 MIL/uL (4.0-5.2); WHITE BLOOD COUNT (AUTO) 9.2 K/uL (4.3-11.0)
[2023-05-06] MEDS: IV D5/ 0.9% NACL 1,000 ML IV PRN (12:30)
[2023-05-06] MEDS ORDERED: CEFAZOLIN 1 GM in IV D5W 50 ML IV ONE (14:00)
[2023-05-06] MEDS ORDERED: CEFAZOLIN 1 GM ONE (14:01)
[2023-05-06] MEDS ORDERED: ANESTHESIA TRAY IN PYXIS 1 EA TRAY MC ONE (15:03)
[2023-05-06] MEDS: TRAZODONE 50 MG TABLET PO SCH ×2 (21:26→21:30)
[2023-05-07] VITALS (77 sets, daily range): BP systolic 56–160; BP diastolic 34–138; TEMP 95.4–98.9; O2SAT 87–100
[2023-05-07] MEDS: ALBUTEROL FS 2.5 MG/0.5 ML VIAL.NEB NEB SCH ×2 (01:51→07:35)
[2023-05-07] MEDS: IPRATROPIUM NEB FS 0.5 MG/2.5 ML AMPUL.NEB NEB SCH ×4 (01:52→19:33)
[2023-05-07] MEDS: MORPHINE SULFATE INJ 2 MG/ML DISP.SYRIN IV PRN (02:09)
[2023-05-07] MEDS: IV D5/ 0.9% NACL 1,000 ML IV PRN (03:00)
[2023-05-07 04:16] LABS: BASOPHILS % (AUTO) 0.1 % (0.0-2.0); EOSINOPHILS % (AUTO) 0.3 % (0.0-6.0); HEMATOCRIT 28 % (33-45); LYMPHOCYTES # (AUTO) 0.8 K/uL (0.8-4.8); LYMPHOCYTES % (AUTO) 10.5 % (20.0-44.0); MEAN CORPUSCULAR HEMOGLOBIN 30 PG (26.0-33.0); MEAN CORPUSCULAR HGB CONC 32 g/dl (31.0-36.0); MEAN CORPUSCULAR VOLUME 92 fL (82-100); MONOCYTES # (AUTO) 0.2 K/uL (0.1-1.30); MONOCYTES % (AUTO) 3.1 % (2.0-12.0); NEUTROPHILS # (AUTO) 6.6 K/uL (1.8-8.9); PLATELET COUNT (AUTO) 87 K/uL (150-450); RED BLOOD CELL COUNT(AUTO) 3.02 MIL/uL (4.0-5.2); WHITE BLOOD COUNT (AUTO) 7.7 K/uL (4.3-11.0)
[2023-05-07 04:32] LABS: CREATININE 1.8 mg/dL (0.6-1.3); MAGNESIUM 1.9 mg/dL (1.8-2.4); PHOSPHORUS 2.1 mg/dL (2.5-4.9); POTASSIUM 3.4 mmol/L (3.5-5.1)
[2023-05-07] MEDS: NOREPINEPHRINE 8 MG in IV NS 0.9% 242 ML IV PRN (04:54)
[2023-05-07 04:59] LABS: BAND % (MANUAL) 5 % (0.0-5.0); EOSINOPHILS % (MANUAL) 0 % (0-4); LYMPHOCYTES % (MANUAL) 12 % (16-48); MONOCYTES % (MANUAL) 2 % (0-11.0); NEUTROPHILS % (MANUAL) 81 (42-76)
[2023-05-07 05:00] LABS: ANISOCYTOSIS 1+; HYPOCHROMASIA 1+; OVALOCYTES 1+; PLATELET ESTIMATE DECREASED
[2023-05-07] MEDS ORDERED: AMIODARONE 150 MG in IV D5W 100 ML IV ONE (06:00)
[2023-05-07] MEDS ORDERED: AMIODARONE 450 MG in IV D5W 241 ML IV PRN (06:00)
[2023-05-07] MEDS ORDERED: AMIODARONE 150 MG/3 ML VIAL IV ONE ×2 (06:01→06:11)
[2023-05-07] MEDS: HYDROCORTISONE SOD SUCCINATE 100 MG/2 ML VIAL IV SCH ×2 (06:28→17:45)
[2023-05-07] MEDS: SEVELAMER CARBONATE 800 MG TABLET PO SCH (08:00)
[2023-05-07] MEDS: DULOXETINE HCL 30 MG CAPSULE.DR PO SCH (08:29)
[2023-05-07] MEDS: DOCUSATE SODIUM LIQ 100 MG/10 ML UDC PO SCH ×2 (08:29→16:55)
[2023-05-07] MEDS: POLYETHYLENE GLYCOL 3350 17 GM POWD.PACK PO SCH (08:29)
[2023-05-07] MEDS: GENTAMICIN 0.1% CREAM 15 GM TUBE TP SCH ×2 (08:30→16:55)
[2023-05-07] MEDS ORDERED: POTASSIUM CHLORIDE 20 MEQ POWDER PACKET GT SCH (09:00)
[2023-05-07] MEDS: NEUTRA PHOS 1 POWD.PACKET GT SCH ×2 (09:18→17:45)
[2023-05-07] MEDS: CLOTRIMAZOLE 1% 15 GM TUBE TP SCH ×2 (09:18→21:29)
[2023-05-07] MEDS: PANTOPRAZOLE 40 MG VIAL IV SCH (09:48)
[2023-05-07] MEDS ORDERED: POTASSIUM CL. PREMIX PERIPHER. 50 ML IV SCH (10:00)
[2023-05-07] MEDS ORDERED: ALBUTEROL FS 2.5 MG/0.5 ML VIAL.NEB NEB PRN (10:00)
[2023-05-07] MEDS ORDERED: SEVELAMER CARBONATE 800 MG TABLET PO SCH (13:00)
[2023-05-07] MEDS: EPOETIN ALFA (10,000 UNIT) 10,000 UNIT/ML VIAL SQ SCH (15:44)
[2023-05-07] MEDS ORDERED: MAGNESIUM HYDROXIDE 30 ML UDC GT PRN (18:18)
[2023-05-07] MEDS ORDERED: MAG HYDROX/AL HYDROX/SIMETH 30 ML UDC GT PRN (18:18)
[2023-05-07] MEDS ORDERED: METHOCARBAMOL (500MG) 500 MG TABLET GT PRN (18:18)
[2023-05-07] MEDS ORDERED: MIDODRINE HCL (5MG) 5 MG TABLET GT PRN (18:18)
[2023-05-07] MEDS ORDERED: ACETAMINOPHEN 650 MG/20.3 ML UDC GT PRN (18:30)
[2023-05-07] MEDS ORDERED: NEPRO 1,000 ML BOTTLE GT PRN (18:30)
[2023-05-07] MEDS: TRAZODONE 50 MG TABLET GT SCH (22:24)
[2023-05-08] VITALS (75 sets, daily range): BP systolic 63–200; BP diastolic 37–116; TEMP 97.5–98.8; O2SAT 92–100
[2023-05-08] MEDS: IPRATROPIUM NEB FS 0.5 MG/2.5 ML AMPUL.NEB NEB SCH ×4 (01:19→19:37)
[2023-05-08 04:27] LABS: BASOPHILS % (AUTO) 0.1 % (0.0-2.0); EOSINOPHILS % (AUTO) 0.1 % (0.0-6.0); HEMATOCRIT 28 % (33-45); HEMOGLOBIN 8.9 g/dL (11.5-14.8); LYMPHOCYTES % (AUTO) 4.8 % (20.0-44.0); MEAN CORPUSCULAR HEMOGLOBIN 30 PG (26.0-33.0); MEAN CORPUSCULAR HGB CONC 32 g/dl (31.0-36.0); MEAN CORPUSCULAR VOLUME 92 fL (82-100); MONOCYTES # (AUTO) 0.6 K/uL (0.1-1.30); MONOCYTES % (AUTO) 2.8 % (2.0-12.0); NEUTROPHILS # (AUTO) 18.4 K/uL (1.8-8.9); NEUTROPHILS % (AUTO) 92.2 % (43.0-81.0); PLATELET COUNT (AUTO) 84 K/uL (150-450); RED BLOOD CELL COUNT(AUTO) 2.98 MIL/uL (4.0-5.2); RED CELL DISTRIBUTION WIDTH 23.2 % (11.5-15.0); WHITE BLOOD COUNT (AUTO) 19.9 K/uL (4.3-11.0)
[2023-05-08 04:47] LABS: ALBUMIN 1.6 g/dL (3.4-5.0); BILIRUBIN,TOTAL 0.7 mg/dL (0.2-1.0); CALCIUM, SERUM 7.8 mg/dL (8.5-10.1); MAGNESIUM 1.9 mg/dL (1.8-2.4); PHOSPHORUS 2.2 mg/dL (2.5-4.9); TOTAL PROTEIN, SERUM 4.6 g/dL (6.4-8.2)
[2023-05-08] MEDS: NOREPINEPHRINE 8 MG in IV NS 0.9% 242 ML IV PRN ×2 (05:12→18:19)
[2023-05-08 05:22] LABS: GENTAMICIN,RANDOM 3.3 ug/ml (4.0-8.0)
[2023-05-08] MEDS: SEVELAMER CARBONATE 800 MG POWD.PACK GT SCH ×3 (05:25→22:28)
[2023-05-08] MEDS: HYDROCORTISONE SOD SUCCINATE 100 MG/2 ML VIAL IV SCH ×2 (05:25→17:35)
[2023-05-08] MEDS: POLYETHYLENE GLYCOL 3350 17 GM POWD.PACK GT SCH (08:45)
[2023-05-08] MEDS: PANTOPRAZOLE 40 MG VIAL IV SCH (08:45)
[2023-05-08] MEDS: DOCUSATE SODIUM LIQ 100 MG/10 ML UDC GT SCH ×2 (08:45→16:45)
[2023-05-08] MEDS: CLOTRIMAZOLE 1% 15 GM TUBE TP SCH ×2 (09:21→21:00)
[2023-05-08] MEDS: GENTAMICIN 0.1% CREAM 15 GM TUBE TP SCH ×2 (09:21→17:33)
[2023-05-08 09:28] LABS: ANISOCYTOSIS 1+; BAND % (MANUAL) 3 % (0.0-5.0); BASOPHILS % (MANUAL) 0 % (0.0-2.0); EOSINOPHILS % (MANUAL) 0 % (0-4); HYPOCHROMASIA 1+; LYMPHOCYTES % (MANUAL) 7 % (16-48); MONOCYTES % (MANUAL) 5 % (0-11.0); NEUTROPHILS % (MANUAL) 85 (42-76); OVALOCYTES 1+; PLATELET ESTIMATE DECREASED
[2023-05-08] MEDS: DULOXETINE HCL 30 MG CAPSULE.DR GT SCH (09:46)
[2023-05-08] MEDS: AMIODARONE HCL 200 MG TABLET GT SCH ×2 (09:47→16:46)
[2023-05-08] MEDS ORDERED: NEUTRA PHOS 1 POWD.PACKET PO ONE (12:00)
[2023-05-08] MEDS ORDERED: NEUTRA PHOS 1 POWD.PACKET GT ONE (12:00)
[2023-05-08] MEDS: CHLORHEXIDINE GLUCONATE 4% 118 ML BOTTLE TP SCH (14:30)
[2023-05-08] MEDS: CELLULOSE,OXIDIZED 1 EA PACK MC SCH (15:44)
[2023-05-08] MEDS: MORPHINE SULFATE INJ 2 MG/ML DISP.SYRIN IV PRN (16:59)
[2023-05-08] MEDS: TRAZODONE 50 MG TABLET GT SCH (22:32)
[2023-05-08] MEDS: GENTAMICIN 120 MG in IV D5W 100 ML IV PRN (22:34)
[2023-05-09] VITALS (91 sets, daily range): BP systolic 61–193; BP diastolic 40–103; TEMP 96.4–97.5; O2SAT 85–100
[2023-05-09] MEDS: IPRATROPIUM NEB FS 0.5 MG/2.5 ML AMPUL.NEB NEB SCH ×4 (01:17→19:35)
[2023-05-09 04:51] LABS: BASOPHILS # (AUTO) 0.1 K/uL (0.0-0.2); BASOPHILS % (AUTO) 0.9 % (0.0-2.0); EOSINOPHILS % (AUTO) 0.1 % (0.0-6.0); HEMATOCRIT 28 % (33-45); HEMOGLOBIN 9.2 g/dL (11.5-14.8); LYMPHOCYTES # (AUTO) 1.2 K/uL (0.8-4.8); LYMPHOCYTES % (AUTO) 8.2 % (20.0-44.0); MEAN CORPUSCULAR HEMOGLOBIN 30 PG (26.0-33.0); MEAN CORPUSCULAR HGB CONC 33 g/dl (31.0-36.0); MEAN CORPUSCULAR VOLUME 91 fL (82-100); MONOCYTES # (AUTO) 0.5 K/uL (0.1-1.30); MONOCYTES % (AUTO) 3.8 % (2.0-12.0); NEUTROPHILS # (AUTO) 12.3 K/uL (1.8-8.9); PLATELET COUNT (AUTO) 63 K/uL (150-450); RED BLOOD CELL COUNT(AUTO) 3.06 MIL/uL (4.0-5.2); RED CELL DISTRIBUTION WIDTH 22.5 % (11.5-15.0); WHITE BLOOD COUNT (AUTO) 14.1 K/uL (4.3-11.0)
[2023-05-09 05:03] LABS: CALCIUM, SERUM 8.2 mg/dL (8.5-10.1); CREATININE 1.7 mg/dL (0.6-1.3); MAGNESIUM 1.7 mg/dL (1.8-2.4); PHOSPHORUS 1.9 mg/dL (2.5-4.9); POTASSIUM 3.1 mmol/L (3.5-5.1)
[2023-05-09 05:27] LABS: D-DIMER 1.87 mg/L(FEU (0.17-0.50); INR 1.03 (0.91-1.10); PARTIAL THROMBOPLASTIN TIME 29.6 SEC (24.3-34.3); PROTHROMBIN TIME 10.9 SECS (9.2-11.1)
[2023-05-09] MEDS: HYDROCORTISONE SOD SUCCINATE 100 MG/2 ML VIAL IV SCH ×2 (06:10→17:13)
[2023-05-09] MEDS: SEVELAMER CARBONATE 800 MG POWD.PACK GT SCH (06:10)
[2023-05-09 06:25] LABS: ANISOCYTOSIS 1+; BAND % (MANUAL) 4 % (0.0-5.0); BASOPHILS % (MANUAL) 0 % (0.0-2.0); EOSINOPHILS % (MANUAL) 0 % (0-4); HYPOCHROMASIA 1+; LYMPHOCYTES % (MANUAL) 9 % (16-48); MONOCYTES % (MANUAL) 4 % (0-11.0); NEUTROPHILS % (MANUAL) 83 (42-76); OVALOCYTES 1+; PLATELET ESTIMATE DECREASED
[2023-05-09] MEDS: PANTOPRAZOLE 40 MG VIAL IV SCH (08:22)
[2023-05-09] MEDS: DOCUSATE SODIUM LIQ 100 MG/10 ML UDC GT SCH ×2 (08:22→17:12)
[2023-05-09] MEDS: DULOXETINE HCL 30 MG CAPSULE.DR GT SCH (08:22)
[2023-05-09] MEDS: AMIODARONE HCL 200 MG TABLET GT SCH ×2 (08:22→17:12)
[2023-05-09] MEDS: POLYETHYLENE GLYCOL 3350 17 GM POWD.PACK GT SCH (08:22)
[2023-05-09] MEDS: GENTAMICIN 0.1% CREAM 15 GM TUBE TP SCH ×2 (08:23→17:07)
[2023-05-09] MEDS: CLOTRIMAZOLE 1% 15 GM TUBE TP SCH ×2 (08:24→21:19)
[2023-05-09] MEDS ORDERED: POTASSIUM CHLORIDE 20 MEQ POWDER PACKET GT SCH (09:30)
[2023-05-09] MEDS: Magnesium 1GM/D5W 100ML PREMIX 100 ML IV SCH ×2 (10:07→11:08)
[2023-05-09] MEDS: NEUTRA PHOS 1 POWD.PACKET PO SCH ×2 (10:09→17:13)
[2023-05-09] MEDS ORDERED: METOCLOPRAMIDE HCL 10 MG TABLET GT SCH (13:00)
[2023-05-09] MEDS: MORPHINE SULFATE INJ 2 MG/ML DISP.SYRIN IV PRN (14:36)
[2023-05-09] MEDS: CHLORHEXIDINE GLUCONATE 4% 118 ML BOTTLE TP SCH (14:44)
[2023-05-09] MEDS: CELLULOSE,OXIDIZED 1 EA PACK MC SCH (14:44)
[2023-05-09] MEDS ORDERED: NEUTRA PHOS 1 POWD.PACKET GT ONE (15:30)
[2023-05-09] MEDS: EPOETIN ALFA (10,000 UNIT) 10,000 UNIT/ML VIAL SQ SCH (15:48)
[2023-05-09] MEDS: METOCLOPRAMIDE HCL 10 MG/2 ML VIAL IV SCH ×4 (17:12→23:35)
[2023-05-09] MEDS: NOREPINEPHRINE 8 MG in IV NS 0.9% 242 ML IV PRN ×2 (19:30→19:33)
[2023-05-09] MEDS: TRAZODONE 50 MG TABLET GT SCH (21:18)
[2023-05-10] VITALS (64 sets, daily range): BP systolic 66–148; BP diastolic 34–112; TEMP 97.9–99.3; O2SAT 93–100
[2023-05-10] MEDS: IPRATROPIUM NEB FS 0.5 MG/2.5 ML AMPUL.NEB NEB SCH ×4 (01:10→19:51)
[2023-05-10 04:53] LABS: CALCIUM, SERUM 8.3 mg/dL (8.5-10.1); CREATININE 2.1 mg/dL (0.6-1.3); MAGNESIUM 2.1 mg/dL (1.8-2.4); PHOSPHORUS 2.1 mg/dL (2.5-4.9); POTASSIUM 4.2 mmol/L (3.5-5.1)
[2023-05-10] MEDS: METOCLOPRAMIDE HCL 10 MG/2 ML VIAL IV SCH ×3 (05:33→17:12)
[2023-05-10] MEDS: HYDROCORTISONE SOD SUCCINATE 100 MG/2 ML VIAL IV SCH ×2 (05:34→17:13)
[2023-05-10] MEDS: DOCUSATE SODIUM LIQ 100 MG/10 ML UDC GT SCH ×2 (09:28→16:45)
[2023-05-10] MEDS: DULOXETINE HCL 30 MG CAPSULE.DR GT SCH (09:28)
[2023-05-10] MEDS: POLYETHYLENE GLYCOL 3350 17 GM POWD.PACK GT SCH (09:29)
[2023-05-10] MEDS: AMIODARONE HCL 200 MG TABLET GT SCH ×2 (09:29→16:46)
[2023-05-10] MEDS: PANTOPRAZOLE 40 MG VIAL IV SCH (09:30)
[2023-05-10] MEDS: GENTAMICIN 0.1% CREAM 15 GM TUBE TP SCH ×2 (09:31→17:14)
[2023-05-10] MEDS: CLOTRIMAZOLE 1% 15 GM TUBE TP SCH ×2 (09:31→21:00)
[2023-05-10] MEDS ORDERED: IV NS 0.9% 250 ML IV STA (09:39)
[2023-05-10] MEDS: IV NS 0.9% 250 ML IV PRN (09:52)
[2023-05-10] MEDS: NEUTRA PHOS 1 POWD.PACKET PO SCH ×2 (09:52→16:45)
[2023-05-10] MEDS ORDERED: IV NS 0.9% 250 ML IV ONE (10:00)
[2023-05-10] MEDS: MORPHINE SULFATE INJ 2 MG/ML DISP.SYRIN IV PRN (10:11)
[2023-05-10] MEDS ORDERED: NEPRO 1,000 ML BOTTLE GT SCH (12:30)
[2023-05-10 13:15] LABS: BASOPHILS % (AUTO) 0.4 % (0.0-2.0); EOSINOPHILS % (AUTO) 0.1 % (0.0-6.0); HEMATOCRIT 24 % (33-45); HEMOGLOBIN 7.8 g/dL (11.5-14.8); LYMPHOCYTES # (AUTO) 0.9 K/uL (0.8-4.8); LYMPHOCYTES % (AUTO) 12.9 % (20.0-44.0); MEAN CORPUSCULAR HEMOGLOBIN 30 PG (26.0-33.0); MEAN CORPUSCULAR HGB CONC 32 g/dl (31.0-36.0); MEAN CORPUSCULAR VOLUME 94 fL (82-100); MONOCYTES # (AUTO) 0.4 K/uL (0.1-1.30); MONOCYTES % (AUTO) 5.3 % (2.0-12.0); NEUTROPHILS % (AUTO) 81.3 % (43.0-81.0); RED BLOOD CELL COUNT(AUTO) 2.59 MIL/uL (4.0-5.2); RED CELL DISTRIBUTION WIDTH 23.1 % (11.5-15.0); WHITE BLOOD COUNT (AUTO) 7.4 K/uL (4.3-11.0)
[2023-05-10 13:20] LABS: PLATELET COUNT (AUTO) 47 K/uL (150-450)
[2023-05-10 13:22] LABS: CALCIUM, SERUM 7.9 mg/dL (8.5-10.1); CREATININE 2.2 mg/dL (0.6-1.3); POTASSIUM 4.4 mmol/L (3.5-5.1)
[2023-05-10 13:36] LABS: ANISOCYTOSIS 1+; BAND % (MANUAL) 2 % (0.0-5.0); BASOPHILS % (MANUAL) 0 % (0.0-2.0); EOSINOPHILS % (MANUAL) 0 % (0-4); LYMPHOCYTES % (MANUAL) 10 % (16-48); MONOCYTES % (MANUAL) 6 % (0-11.0); NEUTROPHILS % (MANUAL) 82 (42-76); PLATELET ESTIMATE DECREASED
[2023-05-10] MEDS: CHLORHEXIDINE GLUCONATE 4% 118 ML BOTTLE TP SCH (14:41)
[2023-05-10] MEDS: CELLULOSE,OXIDIZED 1 EA PACK MC SCH (14:41)
[2023-05-10] MEDS: TRAZODONE 50 MG TABLET GT SCH (22:11)
[2023-05-11] VITALS (17 sets, daily range): BP systolic 101–148; BP diastolic 62–87; TEMP 97.3–98; O2SAT 93–100
[2023-05-11] MEDS: METOCLOPRAMIDE HCL 10 MG/2 ML VIAL IV SCH ×5 (00:12→23:51)
[2023-05-11] MEDS: IPRATROPIUM NEB FS 0.5 MG/2.5 ML AMPUL.NEB NEB SCH ×4 (01:38→20:38)
[2023-05-11 04:12] LABS: BASOPHILS % (AUTO) 0.6 % (0.0-2.0); EOSINOPHILS % (AUTO) 0.2 % (0.0-6.0); HEMATOCRIT 25 % (33-45); LYMPHOCYTES # (AUTO) 1.1 K/uL (0.8-4.8); LYMPHOCYTES % (AUTO) 17.5 % (20.0-44.0); MEAN CORPUSCULAR HEMOGLOBIN 30 PG (26.0-33.0); MEAN CORPUSCULAR HGB CONC 33 g/dl (31.0-36.0); MEAN CORPUSCULAR VOLUME 93 fL (82-100); MONOCYTES # (AUTO) 0.4 K/uL (0.1-1.30); MONOCYTES % (AUTO) 6.5 % (2.0-12.0); NEUTROPHILS # (AUTO) 4.7 K/uL (1.8-8.9); NEUTROPHILS % (AUTO) 75.2 % (43.0-81.0); RED BLOOD CELL COUNT(AUTO) 2.64 MIL/uL (4.0-5.2); RED CELL DISTRIBUTION WIDTH 23.5 % (11.5-15.0); WHITE BLOOD COUNT (AUTO) 6.2 K/uL (4.3-11.0)
[2023-05-11 04:26] LABS: ALBUMIN 1.7 g/dL (3.4-5.0); BILIRUBIN,TOTAL 0.4 mg/dL (0.2-1.0); CALCIUM, SERUM 8.2 mg/dL (8.5-10.1); CREATININE 2.3 mg/dL (0.6-1.3); MAGNESIUM 2.1 mg/dL (1.8-2.4); PHOSPHORUS 2.2 mg/dL (2.5-4.9); POTASSIUM 4.5 mmol/L (3.5-5.1); TOTAL PROTEIN, SERUM 4.7 g/dL (6.4-8.2)
[2023-05-11 04:28] LABS: PLATELET COUNT (AUTO) 45 K/uL (150-450)
[2023-05-11] MEDS: HYDROCORTISONE SOD SUCCINATE 100 MG/2 ML VIAL IV SCH ×2 (05:28→17:25)
[2023-05-11] MEDS ORDERED: NEUTRA PHOS 1 POWD.PACKET NG ONE (07:00)
[2023-05-11] MEDS: POLYETHYLENE GLYCOL 3350 17 GM POWD.PACK GT SCH (09:16)
[2023-05-11] MEDS: DULOXETINE HCL 30 MG CAPSULE.DR GT SCH (09:17)
[2023-05-11] MEDS: AMIODARONE HCL 200 MG TABLET GT SCH ×2 (09:20→17:24)
[2023-05-11] MEDS: DOCUSATE SODIUM LIQ 100 MG/10 ML UDC GT SCH ×2 (09:21→17:23)
[2023-05-11] MEDS: PANTOPRAZOLE 40 MG VIAL IV SCH (09:21)
[2023-05-11] MEDS: GENTAMICIN 0.1% CREAM 15 GM TUBE TP SCH ×2 (09:37→17:24)
[2023-05-11] MEDS: CLOTRIMAZOLE 1% 15 GM TUBE TP SCH ×2 (09:37→21:13)
[2023-05-11 11:51] LABS: ANISOCYTOSIS 1+; BAND % (MANUAL) 3 % (0.0-5.0); BASOPHILS % (MANUAL) 0 % (0.0-2.0); EOSINOPHILS % (MANUAL) 0 % (0-4); HYPOCHROMASIA 1+; LYMPHOCYTES % (MANUAL) 12 % (16-48); MONOCYTES % (MANUAL) 4 % (0-11.0); NEUTROPHILS % (MANUAL) 81 (42-76); PLATELET ESTIMATE DECREASED
[2023-05-11] MEDS: CHLORHEXIDINE GLUCONATE 4% 118 ML BOTTLE TP SCH (15:41)
[2023-05-11] MEDS: CELLULOSE,OXIDIZED 1 EA PACK MC SCH (15:41)
[2023-05-11] MEDS: TRAZODONE 50 MG TABLET GT SCH (21:12)
[2023-05-12] VITALS: BP 128/95; TEMP 97.8; O2SAT 100
[2023-05-12] MEDS: IPRATROPIUM NEB FS 0.5 MG/2.5 ML AMPUL.NEB NEB SCH ×4 (01:58→20:12)
[2023-05-12 04:00] VITALS: BP 109/74; TEMP 97; O2SAT 100
[2023-05-12] MEDS: METOCLOPRAMIDE HCL 10 MG/2 ML VIAL IV SCH ×4 (05:20→23:21)
[2023-05-12] MEDS: HYDROCORTISONE SOD SUCCINATE 100 MG/2 ML VIAL IV SCH ×2 (05:20→17:56)
[2023-05-12 06:57] LABS: CALCIUM, SERUM 8.4 mg/dL (8.5-10.1); CREATININE 2.5 mg/dL (0.6-1.3); POTASSIUM 4.5 mmol/L (3.5-5.1)
[2023-05-12 06:59] LABS: BASOPHILS % (AUTO) 0.1 % (0.0-2.0); EOSINOPHILS % (AUTO) 0.6 % (0.0-6.0); HEMATOCRIT 25 % (33-45); HEMOGLOBIN 8.1 g/dL (11.5-14.8); LYMPHOCYTES # (AUTO) 1.1 K/uL (0.8-4.8); LYMPHOCYTES % (AUTO) 15.5 % (20.0-44.0); MEAN CORPUSCULAR HEMOGLOBIN 30 PG (26.0-33.0); MEAN CORPUSCULAR HGB CONC 33 g/dl (31.0-36.0); MEAN CORPUSCULAR VOLUME 92 fL (82-100); MONOCYTES # (AUTO) 0.4 K/uL (0.1-1.30); MONOCYTES % (AUTO) 5.2 % (2.0-12.0); NEUTROPHILS # (AUTO) 5.7 K/uL (1.8-8.9); NEUTROPHILS % (AUTO) 78.6 % (43.0-81.0); RED BLOOD CELL COUNT(AUTO) 2.66 MIL/uL (4.0-5.2); RED CELL DISTRIBUTION WIDTH 22.6 % (11.5-15.0); WHITE BLOOD COUNT (AUTO) 7.2 K/uL (4.3-11.0)
[2023-05-12 07:05] LABS: PLATELET COUNT (AUTO) 45 K/uL (150-450)
[2023-05-12 08:00] VITALS: BP 116/72; TEMP 98.6; O2SAT 100
[2023-05-12 08:08] LABS: ANISOCYTOSIS 2+; EOSINOPHILS % (MANUAL) 1 % (0-4); LYMPHOCYTES % (MANUAL) 18 % (16-48); MONOCYTES % (MANUAL) 7 % (0-11.0); NEUTROPHILS % (MANUAL) 74 (42-76); PLATELET ESTIMATE DECREASED
[2023-05-12] MEDS: POLYETHYLENE GLYCOL 3350 17 GM POWD.PACK GT SCH (09:00)
[2023-05-12] MEDS: DOCUSATE SODIUM LIQ 100 MG/10 ML UDC GT SCH ×2 (09:18→17:55)
[2023-05-12] MEDS: DULOXETINE HCL 30 MG CAPSULE.DR GT SCH (09:18)
[2023-05-12] MEDS: PANTOPRAZOLE 40 MG VIAL IV SCH (09:18)
[2023-05-12] MEDS: GENTAMICIN 0.1% CREAM 15 GM TUBE TP SCH ×2 (09:19→17:00)
[2023-05-12] MEDS: CLOTRIMAZOLE 1% 15 GM TUBE TP SCH ×2 (09:20→20:39)
[2023-05-12] MEDS: AMIODARONE HCL 200 MG TABLET GT SCH ×2 (09:22→17:56)
[2023-05-12 12:00] VITALS: BP 98/78; TEMP 98.1; O2SAT 100
[2023-05-12] MEDS: CHLORHEXIDINE GLUCONATE 4% 118 ML BOTTLE TP SCH (14:43)
[2023-05-12] MEDS: EPOETIN ALFA (10,000 UNIT) 10,000 UNIT/ML VIAL SQ SCH (14:47)
[2023-05-12 16:28] VITALS: BP 107/78; TEMP 98.7; O2SAT 100
[2023-05-12 20:00] VITALS: BP 95/65; TEMP 97.9; O2SAT 100
[2023-05-12] MEDS: TRAZODONE 50 MG TABLET GT SCH (22:10)
[2023-05-13] VITALS: BP 92/58; TEMP 97.7; O2SAT 100
[2023-05-13] MEDS: IPRATROPIUM NEB FS 0.5 MG/2.5 ML AMPUL.NEB NEB SCH ×3 (01:46→14:19)
[2023-05-13 04:00] VITALS: BP 97/62; TEMP 97.7; O2SAT 100
[2023-05-13] MEDS: METOCLOPRAMIDE HCL 10 MG/2 ML VIAL IV SCH (05:26)
[2023-05-13] MEDS: HYDROCORTISONE SOD SUCCINATE 100 MG/2 ML VIAL IV SCH (05:26)
[2023-05-13 07:14] LABS: CALCIUM, SERUM 8.3 mg/dL (8.5-10.1); CREATININE 2.2 mg/dL (0.6-1.3); POTASSIUM 4.1 mmol/L (3.5-5.1)
[2023-05-13 07:24] LABS: BASOPHILS % (AUTO) 0.3 % (0.0-2.0); EOSINOPHILS % (AUTO) 0.5 % (0.0-6.0); HEMATOCRIT 25 % (33-45); HEMOGLOBIN 8.1 g/dL (11.5-14.8); LYMPHOCYTES # (AUTO) 0.9 K/uL (0.8-4.8); LYMPHOCYTES % (AUTO) 11.9 % (20.0-44.0); MEAN CORPUSCULAR HEMOGLOBIN 31 PG (26.0-33.0); MEAN CORPUSCULAR HGB CONC 33 g/dl (31.0-36.0); MEAN CORPUSCULAR VOLUME 93 fL (82-100); MONOCYTES # (AUTO) 0.2 K/uL (0.1-1.30); NEUTROPHILS # (AUTO) 6.3 K/uL (1.8-8.9); NEUTROPHILS % (AUTO) 84.3 % (43.0-81.0); RED BLOOD CELL COUNT(AUTO) 2.66 MIL/uL (4.0-5.2); RED CELL DISTRIBUTION WIDTH 23.4 % (11.5-15.0); WHITE BLOOD COUNT (AUTO) 7.4 K/uL (4.3-11.0)
[2023-05-13 07:41] LABS: PLATELET COUNT (AUTO) 35 K/uL (150-450)
[2023-05-13 08:00] VITALS: BP 96/61; TEMP 97.7; O2SAT 100
[2023-05-13] MEDS: PANTOPRAZOLE 40 MG VIAL IV SCH (08:39)
[2023-05-13] MEDS: POLYETHYLENE GLYCOL 3350 17 GM POWD.PACK GT SCH (08:39)
[2023-05-13] MEDS: DULOXETINE HCL 30 MG CAPSULE.DR GT SCH (08:39)
[2023-05-13 08:42] VITALS: BP 96/61
[2023-05-13] MEDS: AMIODARONE HCL 200 MG TABLET GT SCH (08:42)
[2023-05-13] MEDS: DOCUSATE SODIUM LIQ 100 MG/10 ML UDC GT SCH (08:43)
[2023-05-13] MEDS: GENTAMICIN 0.1% CREAM 15 GM TUBE TP SCH (08:45)
[2023-05-13] MEDS: CLOTRIMAZOLE 1% 15 GM TUBE TP SCH (08:46)
[2023-05-13 10:35] LABS: ANISOCYTOSIS 2+; LYMPHOCYTES % (MANUAL) 15 % (16-48); MONOCYTES % (MANUAL) 4 % (0-11.0); NEUTROPHILS % (MANUAL) 81 (42-76); PLATELET ESTIMATE DECREASED
[2023-05-13] MEDS ORDERED: METOCLOPRAMIDE HCL 10 MG/10 ML UDC GT SCH ×2 (12:00→21:00)
[2023-05-13] MEDS: CHLORHEXIDINE GLUCONATE 4% 118 ML BOTTLE TP SCH (15:30)
== END 2023-05-13 18:26 | DRG 720 ==
LOC: ER 15:42 → TRANSITION 04-24 02:49 → TELE-TD 04-24 08:28 → TELE1 04-24 10:31 → ICU 04-26 12:26 → TELE-TD 05-11 14:27 → TELE1 05-12 13:43
PROVIDERS: ADMIT Internal Medicine; ATTEND Nurse Practitioner Family
PROC: 5A1955Z Respiratory Ventilation, Greater than 96 Consecutive Hours (ICD-10-PCS; principal; 2023-04-24)
PROC: 5A1D70Z Performance of Urinary Filtration, Intermittent, Less than 6 Hours Per Day (ICD-10-PCS; 2023-04-25)
PROC: 05H933Z Insertion of Infusion Device into Right Brachial Vein, Percutaneous Approach (ICD-10-PCS; 2023-04-25)
PROC: 02HV33Z Insertion of Infusion Device into Superior Vena Cava, Percutaneous Approach (ICD-10-PCS; 2023-04-29)
PROC: B548ZZA Ultrasonography of Superior Vena Cava, Guidance (ICD-10-PCS; 2023-04-29)
PROC: 30273N1 Transfusion of Nonautologous Red Blood Cells into Products of Conception, Circulatory, Percutaneous Approach (ICD-10-PCS; 2023-04-30)
PROC: 30233R1 Transfusion of Nonautologous Platelets into Peripheral Vein, Percutaneous Approach (ICD-10-PCS; 2023-05-01)
PROC: 0DH63UZ Insertion of Feeding Device into Stomach, Percutaneous Approach (ICD-10-PCS; 2023-05-06)
PROC: 0W993ZX Drainage of Right Pleural Cavity, Percutaneous Approach, Diagnostic (ICD-10-PCS; 2023-05-07)
DX: A41.9 Sepsis, unspecified organism (principal); J96.20 Acute and chronic respiratory failure, unspecified whether with hypoxia or hypercapnia; G93.40 Encephalopathy, unspecified; D61.818 Other pancytopenia; R65.21 Severe sepsis with septic shock; I21.4 Non-ST elevation (NSTEMI) myocardial infarction; I95.3 Hypotension of hemodialysis; R57.1 Hypovolemic shock; D68.9 Coagulation defect, unspecified; I12.0 Hypertensive chronic kidney disease with stage 5 chronic kidney disease or end stage renal disease; E27.40 Unspecified adrenocortical insufficiency; J90 Pleural effusion, not elsewhere classified; Z99.11 Dependence on respirator [ventilator] status; Z93.0 Tracheostomy status; R53.2 Functional quadriplegia; N18.6 End stage renal disease; E78.5 Hyperlipidemia, unspecified; Z93.1 Gastrostomy status; R13.10 Dysphagia, unspecified; E87.70 Fluid overload, unspecified; J96.21 Acute and chronic respiratory failure with hypoxia; Z99.2 Dependence on renal dialysis; Z79.51 Long term (current) use of inhaled steroids; Z79.899 Other long term (current) drug therapy; E66.01 Morbid (severe) obesity due to excess calories; Z68.34 Body mass index [BMI] 34.0-34.9, adult; J44.9 Chronic obstructive pulmonary disease, unspecified; I48.91 Unspecified atrial fibrillation; J98.11 Atelectasis; L98.9 Disorder of the skin and subcutaneous tissue, unspecified; L89.156 Pressure-induced deep tissue damage of sacral region; L89.326 Pressure-induced deep tissue damage of left buttock; L89.316 Pressure-induced deep tissue damage of right buttock; S40.821A Blister (nonthermal) of right upper arm, initial encounter; X58.XXXA Exposure to other specified factors, initial encounter; Y92.9 Unspecified place or not applicable; M84.463A Pathological fracture, right fibula, initial encounter for fracture; M89.8X9 Other specified disorders of bone, unspecified site; K80.20 Calculus of gallbladder without cholecystitis without obstruction; N13.6 Pyonephrosis; L89.621 Pressure ulcer of left heel, stage 1; L89.611 Pressure ulcer of right heel, stage 1; L97.919 Non-pressure chronic ulcer of unspecified part of right lower leg with unspecified severity; N39.0 Urinary tract infection, site not specified; D69.6 Thrombocytopenia, unspecified; Z20.822 Contact with and (suspected) exposure to COVID-19; D70.9 Neutropenia, unspecified; S80.12XA Contusion of left lower leg, initial encounter; Z16.24 Resistance to multiple antibiotics; B96.4 Proteus (mirabilis) (morganii) as the cause of diseases classified elsewhere; J93.9 Pneumothorax, unspecified
CPT/HCPCS: 31720; 36410; 36415; 36569; 43246; 71045-TC; 73590-TC; 76700-TC; 76882; 80048-TC; 80053-TC; 80061-TC; 80076-TC; 80170-TC; 80202-TC; 81001; 82040-TC; 82272-TC; 82533; 82607-TC; 82728-TC; 82784; 82962-TC; 83540-TC; 83605-TC; 83735-TC; 84100-TC; 84134-TC; 84155; 84165; 84484-TC; 85025-TC; 85027-TC; 85396; 85730-TC; 86140-TC; 86225; 86235; 86334; 86431-TC; 86706; 86803; 86850-TC; 87040-TC; 87081-TC; 87086-TC; 87340; 90935-TC; 92526; 92611-TC; 93307-TC; 93970-TC; 93971-TC; 94002-TC; 94003-TC; 94760-TC; 94762-TC; 94799-TC; A4223; A4623; A6403; A7526; A9563; C9113; G0378; J0282; J0360; J0690; J0692; J0885; J1580; J1720; J2270; J2704; J2760; J2765; J3105; J3370; J3475; J3490; J7030; J7042; J7050; J7060; J8597; L8501; P9016; P9034; P9035

== ENCOUNTER 2023-05-14 21:34 | Inpatient (IN) | payer OTHER ==
[~2023-05-14] VITALS: Ht 175.3 cm; Wt 103.9 kg
[~2023-05-14 21:34] MED LIST: ACET160L44 GT; ALBU8.5H8 IH; BENZ1LOZ77 PO; BISA10SU11 RC; BLOO-668 IN; CALCIUM ALGINATE TD; CIPR500T5 PO; CLON0.2T GT; DIPH25TA25 PO; DULO60CA45 GT; FAMO-131 PO; FERR325T23 PO; FOLI0.8T2 PO; GUAI100S9 PO; HYDR-4303 PO; HYDR20TA23 GT; IPRA12.9 IH; LORA-258 GT; MAG30ORA GT; MELA3TAB41 PO; METH-647 GT; MIDO10TA GT; MIDO10TA PO; ONDA4TAB5 GT; PANT40TA2 PO; POLY17PO4 GT; SENN-261 PO; SEVE800T8 PO; TRAZ-182 GT; ZINC56.713 TP
[2023-05-14] MEDS ORDERED: IV NS 0.9% 500 ML BAG IV ONE (22:00)
[2023-05-14 22:16] LABS: CALCIUM, SERUM 8.2 mg/dL (8.5-10.1); CREATININE 1.8 mg/dL (0.6-1.3); POTASSIUM 3.7 mmol/L (3.5-5.1)
[2023-05-14 22:23] LABS: ALBUMIN 1.6 g/dL (3.4-5.0); BILIRUBIN,DIRECT 0.2 mg/dL (0.0-0.2); BILIRUBIN,TOTAL 0.5 mg/dL (0.2-1.0); TOTAL PROTEIN, SERUM 4.5 g/dL (6.4-8.2)
[2023-05-14] MEDS ORDERED: NOREPINEPHRINE 8MG/250ML RTU 250 ML IV ONE (22:26)
[2023-05-14] MEDS ORDERED: IV NS 0.9% 1,000 ML BAG IV ONE (22:30)
[2023-05-14] MEDS ORDERED: NOREPINEPHRINE 8 MG in IV NS 0.9% 242 ML IV PRN (22:30)
[2023-05-14 22:33] LABS: INR 1.14 (0.91-1.10); PARTIAL THROMBOPLASTIN TIME 37.3 SEC (24.3-34.3)
[2023-05-14 23:54] LABS: BASOPHILS % (AUTO) 0.4 % (0.0-2.0); EOSINOPHILS % (AUTO) 0.4 % (0.0-6.0); HEMATOCRIT 29 % (33-45); HEMOGLOBIN 9.2 g/dL (11.5-14.8); LYMPHOCYTES # (AUTO) 0.5 K/uL (0.8-4.8); LYMPHOCYTES % (AUTO) 5.8 % (20.0-44.0); MEAN CORPUSCULAR HEMOGLOBIN 30 PG (26.0-33.0); MEAN CORPUSCULAR HGB CONC 32 g/dl (31.0-36.0); MEAN CORPUSCULAR VOLUME 94 fL (82-100); MONOCYTES # (AUTO) 0.1 K/uL (0.1-1.30); NEUTROPHILS # (AUTO) 8.7 K/uL (1.8-8.9); NEUTROPHILS % (AUTO) 92.4 % (43.0-81.0); RED BLOOD CELL COUNT(AUTO) 3.06 MIL/uL (4.0-5.2); RED CELL DISTRIBUTION WIDTH 24.4 % (11.5-15.0); WHITE BLOOD COUNT (AUTO) 9.4 K/uL (4.3-11.0)
[2023-05-15] VITALS (11 sets, daily range): BP systolic 102–141; BP diastolic 60–86; TEMP 97; O2SAT 97–100
[2023-05-15 00:14] LABS: PLATELET COUNT (AUTO) 32 K/uL (150-450)
[2023-05-15] MEDS ORDERED: ASPIRIN 300 MG/SUPP.RECT RC ONE ×2 (00:30→00:39)
[2023-05-15] MEDS ORDERED: ALBUTEROL FS 2.5 MG/3 ML VIAL.NEB NEB PRN ×2 (01:00→19:30)
[2023-05-15] MEDS ORDERED: IPRATROPIUM NEB FS 0.5 MG/2.5 ML AMPUL.NEB NEB PRN ×2 (01:00→19:30)
[2023-05-15] MEDS ORDERED: Z GUARD REMEDY 4 OZ OINT TP PRN (01:00)
[2023-05-15] MEDS ORDERED: ONDANSETRON HCL/PF 4 MG/2 ML VIAL IVP PRN (01:00)
[2023-05-15] MEDS ORDERED: NOREPINEPHRINE 8 MG in IV NS 0.9% 242 ML IV PRN (01:00)
[2023-05-15 03:43] LABS: ANISOCYTOSIS 1+; BASOPHILS % (MANUAL) 0 % (0.0-2.0); EOSINOPHILS % (MANUAL) 0 % (0-4); LYMPHOCYTES % (MANUAL) 8 % (16-48); MONOCYTES % (MANUAL) 5 % (0-11.0); NEUTROPHILS % (MANUAL) 87 (42-76); PLATELET ESTIMATE DECREASED
[2023-05-15] MEDS ORDERED: DOCU50LI GT (08:03)
[2023-05-15] MEDS ORDERED: METO5SOL2 GT (08:03)
[2023-05-15] MEDS ORDERED: IPRA3AMP23 IH (08:03)
[2023-05-15] MEDS ORDERED: AMIO200T5 GT (08:03)
[2023-05-15] MEDS ORDERED: NUT.237L85 GT (08:03)
[2023-05-15] MEDS ORDERED: PANT40SU2 GT (08:03)
[2023-05-15] MEDS ORDERED: EPOE1VIA7 (08:03)
[2023-05-15] MEDS ORDERED: HYDR-4075 GT (08:03)
[2023-05-15] MEDS ORDERED: PANTOPRAZOLE 40 MG VIAL IV SCH (09:00)
[2023-05-15] MEDS ORDERED: MIDODRINE HCL (5MG) 5 MG TABLET ONE (10:56)
[2023-05-15] MEDS ORDERED: HYDROCORTISONE SOD SUCCINATE 100 MG/2 ML VIAL ONE ×2 (10:57→15:37)
[2023-05-15] MEDS ORDERED: PANTOPRAZOLE 40 MG VIAL ONE (10:57)
[2023-05-15] MEDS: HYDROCORTISONE SOD SUCCINATE 100 MG/2 ML VIAL IV SCH ×3 (11:00→21:39)
[2023-05-15] MEDS: MIDODRINE HCL (5MG) 5 MG TABLET GT SCH ×2 (11:00→16:28)
[2023-05-15] MEDS ORDERED: VANCOMYCIN POST DIALYSIS 500MG IV PRN ×2 (17:00)
[2023-05-15] MEDS ORDERED: GENTAMICIN 120 MG in IV D5W 100 ML IV PRN (17:00)
[2023-05-15] MEDS ORDERED: GENTAMICIN 120 MG in IV D5W 100 ML IV ONE (18:00)
[2023-05-15] MEDS ORDERED: NOREPINEPHRINE 8MG/250ML RTU 250 ML IV ONE (18:22)
[2023-05-15] MEDS ORDERED: VANCOMYCIN 1 GM in IV D5W 250ml IV ONE (19:00)
[2023-05-15] MEDS ORDERED: MAG HYDROX/AL HYDROX/SIMETH 30 ML UDC GT PRN (19:00)
[2023-05-15] MEDS ORDERED: BISACODYL SUPP (10 MG) 10 MG/SUPP.RECT SUPP.RECT RC PRN (19:00)
[2023-05-15] MEDS ORDERED: LORAZEPAM 0.5 MG TABLET GT PRN (19:00)
[2023-05-15] MEDS ORDERED: ACETAMINOPHEN 650 MG/20.3 ML UDC GT PRN (19:30)
[2023-05-15] MEDS ORDERED: ALBUTEROL FS 2.5 MG/3 ML VIAL.NEB ONE (19:55)
[2023-05-15] MEDS: ALBUTEROL FS 2.5 MG/3 ML VIAL.NEB NEB SCH (20:03)
[2023-05-15] MEDS: METOCLOPRAMIDE HCL 10 MG/10 ML UDC GT SCH (21:39)
[2023-05-15] MEDS: TRAZODONE 50 MG TABLET GT SCH (21:39)
[2023-05-15] MEDS: ACETAMINOPHEN 650 MG/20.3 ML UDC GT SCH (21:46)
[2023-05-15] MEDS: IPRATROPIUM NEB FS 0.5 MG/2.5 ML AMPUL.NEB NEB SCH (23:45)
[2023-05-16] VITALS (87 sets, daily range): BP systolic 52–165; BP diastolic 34–121; TEMP 97.9–98.3; O2SAT 99–100
[2023-05-16] MEDS: IPRATROPIUM NEB FS 0.5 MG/2.5 ML AMPUL.NEB NEB SCH ×4 (01:13→19:26)
[2023-05-16] MEDS: ALBUTEROL FS 2.5 MG/3 ML VIAL.NEB NEB SCH ×4 (01:13→19:26)
[2023-05-16] MEDS: HYDROCORTISONE SOD SUCCINATE 100 MG/2 ML VIAL IV SCH ×3 (05:09→21:19)
[2023-05-16] MEDS ORDERED: HYDROCORTISONE 20 MG TABLET GT SCH ×2 (06:00→18:00)
[2023-05-16 06:55] LABS: BASOPHILS % (AUTO) 0.1 % (0.0-2.0); HEMATOCRIT 25 % (33-45); LYMPHOCYTES % (AUTO) 4.9 % (20.0-44.0); MEAN CORPUSCULAR HEMOGLOBIN 30 PG (26.0-33.0); MEAN CORPUSCULAR HGB CONC 32 g/dl (31.0-36.0); MEAN CORPUSCULAR VOLUME 93 fL (82-100); MONOCYTES # (AUTO) 0.4 K/uL (0.1-1.30); MONOCYTES % (AUTO) 1.9 % (2.0-12.0); NEUTROPHILS # (AUTO) 19.3 K/uL (1.8-8.9); NEUTROPHILS % (AUTO) 93.1 % (43.0-81.0); PLATELET COUNT (AUTO) 66 K/uL (150-450); RED BLOOD CELL COUNT(AUTO) 2.67 MIL/uL (4.0-5.2); RED CELL DISTRIBUTION WIDTH 24.3 % (11.5-15.0); WHITE BLOOD COUNT (AUTO) 20.8 K/uL (4.3-11.0)
[2023-05-16 07:26] LABS: CALCIUM, SERUM 8.8 mg/dL (8.5-10.1); CREATININE 2.4 mg/dL (0.6-1.3); PHOSPHORUS 3.1 mg/dL (2.5-4.9); POTASSIUM 4.6 mmol/L (3.5-5.1)
[2023-05-16] MEDS ORDERED: NEPRO 1,000 ML BOTTLE GT PRN ×2 (08:00→09:30)
[2023-05-16] MEDS: DOCUSATE SODIUM LIQ 100 MG/10 ML UDC GT SCH ×2 (08:42→17:00)
[2023-05-16] MEDS: POLYETHYLENE GLYCOL 3350 17 GM POWD.PACK GT SCH (08:42)
[2023-05-16] MEDS: METOCLOPRAMIDE HCL 10 MG/10 ML UDC GT SCH ×2 (08:42→21:19)
[2023-05-16] MEDS: PANTOPRAZOLE 40 MG/PACK PACK GT SCH (08:42)
[2023-05-16] MEDS: HYDROCODONE/APAP 5/325MG TABLET PO PRN (08:43)
[2023-05-16] MEDS: MIDODRINE HCL (5MG) 5 MG TABLET GT SCH ×2 (08:45→17:00)
[2023-05-16] MEDS: DULOXETINE HCL 30 MG CAPSULE.DR GT SCH (08:50)
[2023-05-16] MEDS ORDERED: AMIODARONE HCL 200 MG TABLET GT SCH (09:00)
[2023-05-16 09:20] LABS: GENTAMICIN,TROUGH 4.1 ug/ml (0.2-2.0)
[2023-05-16] MEDS: BACITRACIN ZINC OINT (15 GM) 15 GM TUBE TP SCH (11:12)
[2023-05-16] MEDS: THERAHONEY GEL 1.5 OZ TUBE TP SCH (12:30)
[2023-05-16] MEDS: PROSOURCE / PROSTAT (PYXIS) 30 ML UDC GT SCH (17:00)
[2023-05-16 18:51] LABS: BAND % (MANUAL) 2 % (0.0-5.0); LYMPHOCYTES % (MANUAL) 4 % (16-48); MONOCYTES % (MANUAL) 1 % (0-11.0); NEUTROPHILS % (MANUAL) 92 (42-76); REACTIVE LYMPHOCYTES 1 % (0-0)
[2023-05-16 18:52] LABS: ANISOCYTOSIS 1+; OVALOCYTES 1+
[2023-05-16 18:53] LABS: PLATELET ESTIMATE DECRE
[2023-05-16] MEDS: ACETAMINOPHEN 650 MG/20.3 ML UDC GT SCH (21:19)
[2023-05-16] MEDS: TRAZODONE 50 MG TABLET GT SCH (21:21)
[2023-05-17] VITALS (29 sets, daily range): BP systolic 99–156; BP diastolic 53–89; TEMP 97.5–98.6; O2SAT 98–100
[2023-05-17] MEDS: MIDODRINE HCL (5MG) 5 MG TABLET GT SCH ×3 (00:30→16:15)
[2023-05-17] MEDS: ALBUTEROL FS 2.5 MG/3 ML VIAL.NEB NEB SCH ×4 (01:41→19:48)
[2023-05-17] MEDS: IPRATROPIUM NEB FS 0.5 MG/2.5 ML AMPUL.NEB NEB SCH ×4 (01:41→19:48)
[2023-05-17 04:33] LABS: BASOPHILS % (AUTO) 0.1 % (0.0-2.0); EOSINOPHILS % (AUTO) 0.1 % (0.0-6.0); HEMATOCRIT 25 % (33-45); LYMPHOCYTES # (AUTO) 0.8 K/uL (0.8-4.8); LYMPHOCYTES % (AUTO) 5.7 % (20.0-44.0); MEAN CORPUSCULAR HEMOGLOBIN 25 PG (26.0-33.0); MEAN CORPUSCULAR HGB CONC 32 g/dl (31.0-36.0); MEAN CORPUSCULAR VOLUME 79 fL (82-100); MONOCYTES # (AUTO) 0.8 K/uL (0.1-1.30); MONOCYTES % (AUTO) 5.3 % (2.0-12.0); NEUTROPHILS # (AUTO) 12.6 K/uL (1.8-8.9); NEUTROPHILS % (AUTO) 88.8 % (43.0-81.0); PLATELET COUNT (AUTO) 372 K/uL (150-450); RED BLOOD CELL COUNT(AUTO) 3.17 MIL/uL (4.0-5.2); RED CELL DISTRIBUTION WIDTH 17.2 % (11.5-15.0); WHITE BLOOD COUNT (AUTO) 14.1 K/uL (4.3-11.0)
[2023-05-17] MEDS: HYDROCORTISONE SOD SUCCINATE 100 MG/2 ML VIAL IV SCH ×3 (04:47→21:32)
[2023-05-17 04:57] LABS: CALCIUM, SERUM 8.2 mg/dL (8.5-10.1); CREATININE 1.4 mg/dL (0.6-1.3); MAGNESIUM 2.6 mg/dL (1.8-2.4); PHOSPHORUS 3.6 mg/dL (2.5-4.9); POTASSIUM 3.8 mmol/L (3.5-5.1)
[2023-05-17 06:09] LABS: PLATELET ESTIMATE ADEQUATE
[2023-05-17 06:10] LABS: ANISOCYTOSIS 1+
[2023-05-17 06:11] LABS: OVALOCYTES 1+
[2023-05-17] MEDS: POLYETHYLENE GLYCOL 3350 17 GM POWD.PACK GT SCH (08:21)
[2023-05-17] MEDS: DOCUSATE SODIUM LIQ 100 MG/10 ML UDC GT SCH ×2 (08:21→16:14)
[2023-05-17] MEDS: METOCLOPRAMIDE HCL 10 MG/10 ML UDC GT SCH ×2 (08:22→21:32)
[2023-05-17] MEDS: DULOXETINE HCL 30 MG CAPSULE.DR GT SCH (08:23)
[2023-05-17] MEDS: PANTOPRAZOLE 40 MG/PACK PACK GT SCH (08:23)
[2023-05-17] MEDS: PROSOURCE / PROSTAT (PYXIS) 30 ML UDC GT SCH ×2 (08:23→16:16)
[2023-05-17] MEDS: BACITRACIN ZINC OINT (15 GM) 15 GM TUBE TP SCH (08:24)
[2023-05-17] MEDS: THERAHONEY GEL 1.5 OZ TUBE TP SCH (08:24)
[2023-05-17] MEDS ORDERED: AMIODARONE HCL 200 MG TABLET GT SCH (09:00)
[2023-05-17] MEDS: EPOETIN ALFA (10,000 UNIT) 10,000 UNIT/ML VIAL IV SCH (18:26)
[2023-05-17] MEDS: TRAZODONE 50 MG TABLET GT SCH (21:34)
[2023-05-17] MEDS: ACETAMINOPHEN 650 MG/20.3 ML UDC GT SCH (21:37)
[2023-05-18] VITALS: BP 184/82; TEMP 98.6; O2SAT 100
[2023-05-18] MEDS: MIDODRINE HCL (5MG) 5 MG TABLET GT SCH ×3 (00:35→17:00)
[2023-05-18] MEDS: ALBUTEROL FS 2.5 MG/3 ML VIAL.NEB NEB SCH ×4 (01:34→19:49)
[2023-05-18] MEDS: IPRATROPIUM NEB FS 0.5 MG/2.5 ML AMPUL.NEB NEB SCH ×4 (01:34→19:49)
[2023-05-18] MEDS: HYDROCODONE/APAP 5/325MG TABLET PO PRN ×2 (03:38→17:30)
[2023-05-18 04:00] VITALS: BP 148/72; TEMP 98.1; O2SAT 100
[2023-05-18] MEDS: HYDROCORTISONE SOD SUCCINATE 100 MG/2 ML VIAL IV SCH ×3 (05:03→21:38)
[2023-05-18 07:13] LABS: BASOPHILS % (AUTO) 0.1 % (0.0-2.0); HEMATOCRIT 22 % (33-45); HEMOGLOBIN 7.4 g/dL (11.5-14.8); LYMPHOCYTES # (AUTO) 0.5 K/uL (0.8-4.8); LYMPHOCYTES % (AUTO) 6.8 % (20.0-44.0); MEAN CORPUSCULAR HEMOGLOBIN 31 PG (26.0-33.0); MEAN CORPUSCULAR HGB CONC 33 g/dl (31.0-36.0); MEAN CORPUSCULAR VOLUME 94 fL (82-100); MONOCYTES # (AUTO) 0.2 K/uL (0.1-1.30); MONOCYTES % (AUTO) 3.1 % (2.0-12.0); NEUTROPHILS # (AUTO) 7.1 K/uL (1.8-8.9); PLATELET COUNT (AUTO) 56 K/uL (150-450); RED BLOOD CELL COUNT(AUTO) 2.37 MIL/uL (4.0-5.2); WHITE BLOOD COUNT (AUTO) 7.8 K/uL (4.3-11.0)
[2023-05-18 08:00] VITALS: BP 180/100; TEMP 97.5; O2SAT 100
[2023-05-18 08:23] LABS: CALCIUM, SERUM 8.6 mg/dL (8.5-10.1); CREATININE 2.2 mg/dL (0.6-1.3); MAGNESIUM 2.1 mg/dL (1.8-2.4); PHOSPHORUS 2.6 mg/dL (2.5-4.9); POTASSIUM 2.9 mmol/L (3.5-5.1)
[2023-05-18] MEDS ORDERED: NITROGLYCERIN 30 GM TUBE TP SCH (09:00)
[2023-05-18] MEDS: PANTOPRAZOLE 40 MG/PACK PACK GT SCH (09:47)
[2023-05-18] MEDS: POLYETHYLENE GLYCOL 3350 17 GM POWD.PACK GT SCH (09:48)
[2023-05-18] MEDS: METOCLOPRAMIDE HCL 10 MG/10 ML UDC GT SCH ×2 (09:49→21:37)
[2023-05-18] MEDS: NITROGLYCERIN PACKET 1 GM PACKET TOP SCH ×2 (09:49→21:38)
[2023-05-18] MEDS: hydrALAZINE HCL 50 MG TABLET PO SCH ×3 (09:49→17:17)
[2023-05-18] MEDS: DULOXETINE HCL 30 MG CAPSULE.DR GT SCH (09:49)
[2023-05-18] MEDS: DOCUSATE SODIUM LIQ 100 MG/10 ML UDC GT SCH ×2 (09:49→17:17)
[2023-05-18] MEDS: THERAHONEY GEL 1.5 OZ TUBE TP SCH (09:55)
[2023-05-18] MEDS: BACITRACIN ZINC OINT (15 GM) 15 GM TUBE TP SCH (09:55)
[2023-05-18] MEDS: PROSOURCE / PROSTAT (PYXIS) 30 ML UDC GT SCH ×2 (09:56→17:17)
[2023-05-18] MEDS: POTASSIUM CHLORIDE 20 MEQ POWDER PACKET GT SCH ×2 (10:00→11:43)
[2023-05-18] MEDS ORDERED: POTASSIUM CL. PREMIX PERIPHER. 50 ML IV SCH (10:00)
[2023-05-18 11:38] LABS: ANISOCYTOSIS 2+; HYPOCHROMASIA 1+; LYMPHOCYTES % (MANUAL) 5 % (16-48); MONOCYTES % (MANUAL) 2 % (0-11.0); NEUTROPHILS % (MANUAL) 93 (42-76); PLATELET ESTIMATE DECREASED
[2023-05-18] MEDS ORDERED: ALBUMIN 25% 25 GM in PREMIX 1 EA IV PRN (13:00)
[2023-05-18 15:08] LABS: HIV-1 p24 ANTIGEN REACTIVE (NONREACTIVE); HIV-1/2 ANTIBODY NON REACTIVE (NONREACTIVE)
[2023-05-18 16:00] VITALS: BP 121/64; TEMP 97.1; O2SAT 100
[2023-05-18 20:00] VITALS: BP 133/75; TEMP 96.8; O2SAT 100
[2023-05-18] MEDS: TRAZODONE 50 MG TABLET GT SCH (21:38)
[2023-05-18] MEDS: ACETAMINOPHEN 650 MG/20.3 ML UDC GT SCH (21:40)
[2023-05-19] VITALS: BP 114/69; TEMP 96.8; O2SAT 100
[2023-05-19] MEDS: MIDODRINE HCL (5MG) 5 MG TABLET GT SCH ×3 (00:28→17:00)
[2023-05-19] MEDS: IPRATROPIUM NEB FS 0.5 MG/2.5 ML AMPUL.NEB NEB SCH ×4 (02:22→19:55)
[2023-05-19] MEDS: ALBUTEROL FS 2.5 MG/3 ML VIAL.NEB NEB SCH ×4 (02:22→19:55)
[2023-05-19 04:00] VITALS: BP 111/65; TEMP 96.4; O2SAT 100
[2023-05-19] MEDS: HYDROCORTISONE SOD SUCCINATE 100 MG/2 ML VIAL IV SCH ×3 (04:06→21:10)
[2023-05-19 08:05] LABS: BASOPHILS % (AUTO) 0.1 % (0.0-2.0); HEMATOCRIT 22 % (33-45); HEMOGLOBIN 7.1 g/dL (11.5-14.8); LYMPHOCYTES # (AUTO) 0.5 K/uL (0.8-4.8); LYMPHOCYTES % (AUTO) 5.1 % (20.0-44.0); MEAN CORPUSCULAR HEMOGLOBIN 30 PG (26.0-33.0); MEAN CORPUSCULAR HGB CONC 32 g/dl (31.0-36.0); MEAN CORPUSCULAR VOLUME 93 fL (82-100); MONOCYTES # (AUTO) 0.3 K/uL (0.1-1.30); MONOCYTES % (AUTO) 3.4 % (2.0-12.0); NEUTROPHILS # (AUTO) 8.8 K/uL (1.8-8.9); NEUTROPHILS % (AUTO) 91.4 % (43.0-81.0); PLATELET COUNT (AUTO) 72 K/uL (150-450); RED BLOOD CELL COUNT(AUTO) 2.37 MIL/uL (4.0-5.2); RED CELL DISTRIBUTION WIDTH 24.4 % (11.5-15.0); WHITE BLOOD COUNT (AUTO) 9.7 K/uL (4.3-11.0)
[2023-05-19 08:51] LABS: CALCIUM, SERUM 8.4 mg/dL (8.5-10.1); CREATININE 1.6 mg/dL (0.6-1.3); PHOSPHORUS 1.9 mg/dL (2.5-4.9); POTASSIUM 3.2 mmol/L (3.5-5.1)
[2023-05-19 08:54] VITALS: BP 149/75; TEMP 96.8; O2SAT 100
[2023-05-19] MEDS: METOCLOPRAMIDE HCL 10 MG/10 ML UDC GT SCH ×2 (08:58→21:11)
[2023-05-19] MEDS: DOCUSATE SODIUM LIQ 100 MG/10 ML UDC GT SCH ×2 (08:59→17:51)
[2023-05-19] MEDS: hydrALAZINE HCL 50 MG TABLET PO SCH ×3 (08:59→17:00)
[2023-05-19] MEDS: POLYETHYLENE GLYCOL 3350 17 GM POWD.PACK GT SCH (09:00)
[2023-05-19] MEDS: NITROGLYCERIN PACKET 1 GM PACKET TOP SCH ×2 (09:00→21:22)
[2023-05-19] MEDS: DULOXETINE HCL 30 MG CAPSULE.DR GT SCH (09:00)
[2023-05-19] MEDS: PANTOPRAZOLE 40 MG/PACK PACK GT SCH (09:00)
[2023-05-19] MEDS: BACITRACIN ZINC OINT (15 GM) 15 GM TUBE TP SCH (09:01)
[2023-05-19] MEDS: PROSOURCE / PROSTAT (PYXIS) 30 ML UDC GT SCH ×2 (09:01→17:51)
[2023-05-19] MEDS: THERAHONEY GEL 1.5 OZ TUBE TP SCH (09:02)
[2023-05-19] MEDS: POTASSIUM CHLORIDE 20 MEQ TAB.PRT.SR PO SCH ×2 (09:35→11:05)
[2023-05-19] MEDS: NEUTRA PHOS 1 POWD.PACKET PO SCH ×2 (09:35→17:53)
[2023-05-19 10:46] LABS: BAND % (MANUAL) 3 % (0.0-5.0); EOSINOPHILS % (MANUAL) 1 % (0-4); HYPOCHROMASIA 1+; LYMPHOCYTES % (MANUAL) 5 % (16-48); MONOCYTES % (MANUAL) 1 % (0-11.0); NEUTROPHILS % (MANUAL) 90 (42-76); PLATELET ESTIMATE DECREASED
[2023-05-19 10:47] LABS: ANISOCYTOSIS 1+
[2023-05-19 13:31] VITALS: BP 150/80; TEMP 97.5; O2SAT 100
[2023-05-19 14:59] LABS: HEMOGLOBIN 7.6 g/dL (11.5-14.8)
[2023-05-19 16:27] VITALS: BP 180/100; TEMP 97.5; O2SAT 100
[2023-05-19] MEDS: EPOETIN ALFA (10,000 UNIT) 10,000 UNIT/ML VIAL IV SCH (18:09)
[2023-05-19 20:00] VITALS: BP 123/65; TEMP 96.4; O2SAT 100
[2023-05-19] MEDS: ACETAMINOPHEN 650 MG/20.3 ML UDC GT SCH (21:00)
[2023-05-19] MEDS: TRAZODONE 50 MG TABLET GT SCH (21:11)
[2023-05-19] MEDS: HYDROCODONE/APAP 5/325MG TABLET PO PRN ×2 (21:11→21:12)
[2023-05-20] VITALS (7 sets, daily range): BP systolic 90–139; BP diastolic 48–76; TEMP 95.6–98.5; O2SAT 96–100
[2023-05-20] MEDS: MIDODRINE HCL (5MG) 5 MG TABLET GT SCH ×3 (01:00→16:12)
[2023-05-20] MEDS: ALBUTEROL FS 2.5 MG/3 ML VIAL.NEB NEB SCH ×4 (01:55→20:18)
[2023-05-20] MEDS: IPRATROPIUM NEB FS 0.5 MG/2.5 ML AMPUL.NEB NEB SCH ×4 (01:55→20:18)
[2023-05-20] MEDS: HYDROCORTISONE SOD SUCCINATE 100 MG/2 ML VIAL IV SCH ×2 (04:22→12:53)
[2023-05-20] MEDS: METOCLOPRAMIDE HCL 10 MG/10 ML UDC GT SCH (08:47)
[2023-05-20] MEDS: POLYETHYLENE GLYCOL 3350 17 GM POWD.PACK GT SCH (08:47)
[2023-05-20] MEDS: PANTOPRAZOLE 40 MG/PACK PACK GT SCH (08:47)
[2023-05-20] MEDS: DOCUSATE SODIUM LIQ 100 MG/10 ML UDC GT SCH ×2 (08:48→16:31)
[2023-05-20] MEDS: NITROGLYCERIN PACKET 1 GM PACKET TOP SCH (08:48)
[2023-05-20] MEDS: DULOXETINE HCL 30 MG CAPSULE.DR GT SCH (08:48)
[2023-05-20] MEDS: hydrALAZINE HCL 50 MG TABLET PO SCH ×3 (08:48→16:29)
[2023-05-20] MEDS: PROSOURCE / PROSTAT (PYXIS) 30 ML UDC GT SCH ×2 (08:49→16:12)
[2023-05-20] MEDS: BACITRACIN ZINC OINT (15 GM) 15 GM TUBE TP SCH (08:53)
[2023-05-20] MEDS: THERAHONEY GEL 1.5 OZ TUBE TP SCH (08:53)
[2023-05-20 11:40] LABS: BASOPHILS % (AUTO) 0.1 % (0.0-2.0); HEMATOCRIT 23 % (33-45); HEMOGLOBIN 7.2 g/dL (11.5-14.8); LYMPHOCYTES # (AUTO) 0.6 K/uL (0.8-4.8); LYMPHOCYTES % (AUTO) 5.9 % (20.0-44.0); MEAN CORPUSCULAR HEMOGLOBIN 30 PG (26.0-33.0); MEAN CORPUSCULAR HGB CONC 32 g/dl (31.0-36.0); MEAN CORPUSCULAR VOLUME 95 fL (82-100); MONOCYTES # (AUTO) 0.3 K/uL (0.1-1.30); MONOCYTES % (AUTO) 2.6 % (2.0-12.0); NEUTROPHILS % (AUTO) 91.4 % (43.0-81.0); PLATELET COUNT (AUTO) 55 K/uL (150-450); RED BLOOD CELL COUNT(AUTO) 2.37 MIL/uL (4.0-5.2); RED CELL DISTRIBUTION WIDTH 24.3 % (11.5-15.0); WHITE BLOOD COUNT (AUTO) 9.8 K/uL (4.3-11.0)
[2023-05-20 11:51] LABS: ALBUMIN 1.9 g/dL (3.4-5.0); BILIRUBIN,TOTAL 0.3 mg/dL (0.2-1.0); CALCIUM, SERUM 8.6 mg/dL (8.5-10.1); CREATININE 1.9 mg/dL (0.6-1.3); MAGNESIUM 2.1 mg/dL (1.8-2.4); PHOSPHORUS 1.9 mg/dL (2.5-4.9); POTASSIUM 3.6 mmol/L (3.5-5.1); TOTAL PROTEIN, SERUM 4.4 g/dL (6.4-8.2)
[2023-05-20 13:50] LABS: ANISOCYTOSIS 1+; BAND % (MANUAL) 3 % (0.0-5.0); HYPOCHROMASIA 1+; LYMPHOCYTES % (MANUAL) 9 % (16-48); MONOCYTES % (MANUAL) 2 % (0-11.0); NEUTROPHILS % (MANUAL) 86 (42-76); PLATELET ESTIMATE DECREASED
[2023-05-20] MEDS ORDERED: NEUTRA PHOS 1 POWD.PACKET NG ONE (16:00)
[2023-05-20] MEDS: ACETAMINOPHEN 650 MG/20.3 ML UDC GT SCH (20:01)
== END 2023-05-20 20:25 | DRG 720 ==
LOC: ER 21:47 → TRANSITION 05-15 01:25 → ICU 05-15 19:38 → TELE1 05-17 11:20 → TELE-TD 05-17 11:30 → TELE1 05-20 09:34
PROVIDERS: ADMIT Student in an Organized Health Care Education/Training Program; ATTEND Student in an Organized Health Care Education/Training Program
PROC: 5A1955Z Respiratory Ventilation, Greater than 96 Consecutive Hours (ICD-10-PCS; principal; 2023-05-15)
PROC: 30233R1 Transfusion of Nonautologous Platelets into Peripheral Vein, Percutaneous Approach (ICD-10-PCS; 2023-05-15)
PROC: 5A1D70Z Performance of Urinary Filtration, Intermittent, Less than 6 Hours Per Day (ICD-10-PCS; 2023-05-16)
DX: A41.9 Sepsis, unspecified organism (principal); E43 Unspecified severe protein-calorie malnutrition; D61.818 Other pancytopenia; I21.4 Non-ST elevation (NSTEMI) myocardial infarction; J90 Pleural effusion, not elsewhere classified; R65.21 Severe sepsis with septic shock; R57.1 Hypovolemic shock; I95.3 Hypotension of hemodialysis; D69.6 Thrombocytopenia, unspecified; G93.49 Other encephalopathy; E27.40 Unspecified adrenocortical insufficiency; I12.0 Hypertensive chronic kidney disease with stage 5 chronic kidney disease or end stage renal disease; Z99.11 Dependence on respirator [ventilator] status; Z93.0 Tracheostomy status; E88.09 Other disorders of plasma-protein metabolism, not elsewhere classified; N18.6 End stage renal disease; Z20.822 Contact with and (suspected) exposure to COVID-19; R13.10 Dysphagia, unspecified; Z93.1 Gastrostomy status; J44.9 Chronic obstructive pulmonary disease, unspecified; Z99.2 Dependence on renal dialysis; Z88.2 Allergy status to sulfonamides; Z88.8 Allergy status to other drugs, medicaments and biological substances; Z91.018 Allergy to other foods; N39.0 Urinary tract infection, site not specified; M89.8X9 Other specified disorders of bone, unspecified site; K29.70 Gastritis, unspecified, without bleeding; Z79.51 Long term (current) use of inhaled steroids; Z79.899 Other long term (current) drug therapy; R53.2 Functional quadriplegia; E78.5 Hyperlipidemia, unspecified; L89.156 Pressure-induced deep tissue damage of sacral region; L89.326 Pressure-induced deep tissue damage of left buttock; L89.316 Pressure-induced deep tissue damage of right buttock; X58.XXXA Exposure to other specified factors, initial encounter; Y92.129 Unspecified place in nursing home as the place of occurrence of the external cause; S50.821A Blister (nonthermal) of right forearm, initial encounter; I25.10 Atherosclerotic heart disease of native coronary artery without angina pectoris; I48.0 Paroxysmal atrial fibrillation; D50.9 Iron deficiency anemia, unspecified; E86.9 Volume depletion, unspecified; J96.11 Chronic respiratory failure with hypoxia; M84.463A Pathological fracture, right fibula, initial encounter for fracture; I25.2 Old myocardial infarction; Z86.19 Personal history of other infectious and parasitic diseases; Z87.09 Personal history of other diseases of the respiratory system; E66.9 Obesity, unspecified; Z68.33 Body mass index [BMI] 33.0-33.9, adult
CPT/HCPCS: 31720; 36415; 71045-TC; 80048-TC; 80053-TC; 80076-TC; 80170-TC; 80202-TC; 82533; 83605-TC; 83615-TC; 83690-TC; 83735-TC; 84100-TC; 84484-TC; 85025-TC; 85027-TC; 85045-TC; 85730-TC; 86850-TC; 86880-TC; 87040-TC; 87081-TC; 87536; 87806; 90935-TC; 94002-TC; 94003-TC; 94760-TC; 94799-TC; A4216; A6253; A7526; C9113; G0378; J0885; J1580; J1720; J2405; J3370; J3480; J7030; J7040; J7050; J7060; J8597; P9034; P9047